=== PATIENT | female | born 1930 | race Caucasian/White ===

== ENCOUNTER 2016-11-15 06:34 | Inpatient (IN) | payer MEDICARE, BC ==
[2016-11-15] MEDS ORDERED: FUROSEMIDE 10 MG/ML 4 ML VIAL IV STA (06:45)
--- NOTE | 2016-11-15 06:45 | ED ---
General Adult HPI - General Source: RN notes reviewed <Nicholas Herrera - Last Filed: 11/15/16 06:47> <Nicholas Trevino - Last Filed: 11/15/16 08:26> - General Stated complaint: KEMAL Time Seen by Provider: 11/15/16 06:34 - History of Present Illness Initial comments: This is an 86-year-old female that was transferred to us from [facility] by Dr. pathak. Patient showed up there did complain of some chest pain also had a history of recently diagnosed pneumonia. Patient came in because she is having difficulty breathing when she woke up with him all night with bathroom. Dr. Read stated that she had congestive heart failure today as well as COPD exacerbation. She continues to treat the pneumonia and he stated that he put her on heparin and nitroglycerin for the chest pain. I spoke with the patient she denied ever having any chest pain today she did say she has some upper back pain. Patient stated that her breathing had improved so she went to [facility]. Patient states she's been on oxygen 24 hours a day and most recently she has been moved up to 5 L of oxygen. Patient states she does have some increased edema in her legs. Patient denies any fever or chills. Patient denies any abdominal pain. Patient denies any lightheadedness or dizziness. ( Nicholas Herrera) - Related Data Home Medications Medication Instructions Recorded Confirmed Cholecalciferol [Vitamin D3] 5,000 unit PO DAILY 11/26/14 03/12/16 Oxybutynin Chloride [Ditropan] 5 mg PO BID 11/26/14 03/12/16 Pravastatin Sodium [Pravachol] 20 mg PO DAILY 11/26/14 03/12/16 Vits A,C,E/Lutein/Minerals 1 tab PO DAILY 11/26/14 03/12/16 [Ocuvite with Lutein Tablet] Aspirin EC [Ecotrin] 325 mg PO DAILY 01/21/16 03/12/16 Cyanocobalamin (Vitamin B-12) 5,000 mcg SUBLINGUAL DAILY 01/21/16 03/12/16 [Vitamin B12] L.acidoph,Paracasei, B.lactis 1 cap PO DAILY 01/21/16 03/12/16 [Probiotic] Bea[place]ont-3 Fatty Acids/Fish Oil [Fish 1 cap PO DAILY 01/21/16 03/12/16 Oil 1,000 mg Softgel] Pyridoxine [Vitamin B-6] 100 mg PO DAILY 01/21/16 03/12/16 Coconut Oil 1,000 mg PO DAILY 02/06/16 03/12/16 Spironolactone [Aldactone] 25 mg PO QAM 02/06/16 03/12/16 Acetaminophen Tab [Tylenol] 650 mg PO Q4-6H 03/12/16 03/12/16 Fluticasone/Salmeterol [Advair 1 puff INHALATION RT-BID 03/12/16 03/12/16 250-50 Diskus] Ipratropium-Albuterol Nebulize 3 ml INHALATION RT-Q6H PRN 03/12/16 03/12/16 [Duoneb 0.5 mg-3 mg/3 ml Soln] Losartan [Cozaar] 50 mg PO 03/12/16 guaiFENesin 400 mg PO QID 03/12/16 03/12/16 Previous Rx's Medication Instructions Recorded Azithromycin [Zithromax Tri-Bobby] 500 mg PO DAILY #5 tab 03/15/16 predniSONE 10 mg PO DAILY #40 tab 03/15/16 Allergies Allergy/AdvReac Type Severity Reaction Status Date / Time levofloxacin [From Levaquin] Allergy Rash/Hives Verified 11/15/16 06:43 Review of Systems ROS Other: All systems not noted in ROS Statement are negative. <Nicholas Herrera - Last Filed: 11/15/16 06:47> ROS Other: All systems not noted in ROS Statement are negative. <Nicholas Trevino - Last Filed: 11/15/16 08:26> ROS Statement: Those systems with pertinent positive or pertinent negative responses have been documented in the HPI. Past Medical History Past Medical History: Asthma, COPD, Hyperlipidemia, Hypertension, Myocardial Infarction ([place]), Osteoarthritis ([place]), Pneumonia Additional Past Medical History / Comment(s): diverticulitis, "irreg heart beat " Last Myocardial Infarction Date:: unsure History of Any Multi-Drug Resistant Organisms: MRSA Date of last positivie culture/infection: 01/22/16 MDRO Source:: sputum Past Surgical History: Appendectomy, Bowel Resection, Section, Cholecystectomy, Hysterectomy Additional Past Surgical History / Comment(s): cataracts,colonoscopy, pic line in sept-since removed Past Anesthesia/Blood Transfusion Reactions: No Reported Reaction Past Psychological History: No Psychological Hx Reported Smoking Status: Former smoker Past Alcohol Use History: None Reported Additional Past Alcohol Use History / Comment(s): started smoking 1953, quit - 2015 was smoking between 1.5 and 2 ppd Past Drug Use History: None Reported - Past Family History Father Family Medical History: Cancer Additional Family Medical History / Comment(s): stomach cancer Mother Family Medical History: No Reported History Additional Family Medical History / Comment(s): in a mva <Nicholas Herrera - Last Filed: 11/15/16 06:47> General Exam <Nicholas Herrera - Last Filed: 11/15/16 06:47> General appearance: alert, anxious, in distress Head exam: Present: atraumatic, normocephalic, normal inspection Eye exam: Present: normal appearance, PERRL, EOMI. Absent: scleral icterus, conjunctival injection, periorbital swelling ENT exam: Present: normal exam, mucous membranes moist Neck exam: Present: normal inspection. Absent: tenderness, meningismus, lymphadenopathy Respiratory exam: Present: normal lung sounds bilaterally, rales, accessory muscle use, decreased breath sounds, prolonged expiratory. Absent: respiratory distress, wheezes, rhonchi, stridor Cardiovascular Exam: Present: regular rate, normal rhythm, normal heart sounds. Absent: systolic murmur, diastolic murmur, rubs, gallop, clicks GI/Abdominal exam: Present: soft, normal bowel sounds. Absent: distended, tenderness, guarding, rebound, rigid Extremities exam: Present: normal inspection, full ROM, normal capillary refill. Absent: tenderness, pedal edema, joint swelling, calf tenderness Back exam: Present: normal inspection Neurological exam: Present: alert, oriented X3, CN II-XII intact Psychiatric exam: Present: normal affect, normal mood Skin exam: Present: warm, dry, intact, normal color. Absent: rash <Nicholas Trevino - Last Filed: 11/15/16 08:26> - General Exam Comments Initial Comments: GENERAL: Patient is well-developed and well-nourished. Patient is nontoxic and well- hydrated and is in mild distress. ENT: Neck is soft and supple. No significant lymphadenopathy is noted. Oropharynx is clear. Moist mucous membranes. Neck has full range of motion without eliciting any pain. EYES: The sclera were anicteric and conjunctiva were pink and moist. Extraocular movements were intact and pupils were equal round and reactive to light. Eyelids were unremarkable. PULMONARY: Unlabored respirations. Good breath sounds bilaterally. Patient has crackles bilaterally. CARDIOVASCULAR: There is a regular rate and rhythm without any murmurs gallops or rubs. Patient has occasional extrasystole ABDOMEN: Soft and nontender with normal bowel sounds. No palpable organomegaly was noted. There is no palpable pulsatile mass. SKIN: Skin is clear with no lesions or rashes and otherwise unremarkable. NEUROLOGIC: Patient is alert and oriented x3. Cranial nerves II through XII are grossly intact. Motor and sensory are also intact. Normal speech, volume and content. Symmetrical smile. MUSCULOSKELETAL: Normal extremities with adequate strength and full range of motion. 2+ edema bilaterally LYMPHATICS: No significant lymphadenopathy is noted PSYCHIATRIC: Normal psychiatric evaluation. Normal interpersonal interactions appears functionally intact in deals appropriately with others. No signs of depression. No signs of anxiety. (Nicholas Herrera) Course <Nicholas Herrera - Last Filed: 11/15/16 06:47> <Nicholas Trevino - Last Filed: 11/15/16 08:26> Vital Signs 11/15/16 11/15/16 11/15/16 06:36 06:57 07:04 Temperature 96.9 F L Pulse Rate 86 112 H Respiratory 22 24 18 Rate Blood Pressure 156/69 164/77 O2 Sat by Pulse 96 92 L Oximetry 11/15/16 11/15/16 07:36 07:56 Temperature Pulse Rate 102 H 112 H Respiratory 22 22 Rate Blood Pressure 179/75 181/72 O2 Sat by Pulse 95 95 Oximetry - Reevaluation(s) Reevaluation #1: 11/15/16 08:25 Patient appears to be in A. fib with RVR, patient on heparin drip, secondary to severe COPD, CHF, pneumonia with hypoxia will be placed on BiPAP ( Nicholas Trevino) Reevaluation #2: 11/15/16 08:25 Patient improving on BiPAP (Roskopp,Nicholas B) Medical Decision Making <Nicholas Herrera - Last Filed: 11/15/16 06:47> - Lab Data Result diagrams: 11/15/16 06:55 11/15/16 06:55 - Radiology Data Radiology results: report reviewed (Chest x-rays reviewed consistent with pulmonary edema with likely underlying infiltrate), image reviewed <Nicholas Trevino - Last Filed: 11/15/16 08:26> - Medical Decision Making EKG shows sinus tachycardia with occasional PAC at 116 bpm NV interval is 112 QRS is 116 QT interval 356 QTC is 494. There is no ST segment elevation or depression or T wave abnormalities are noted Dr. Trevino will be taking over the care of this patient at 7 AM (Nicholas Herrera) 86. ER with multiple medical comorbidities is coming in with shortness of breath multifactorial hypoxia, COPD CHF and pneumonia. Patient will be admitted to continue cardio dynamic and hemodynamic support, breathing treatments, monitoring of oxygen and breathing support. (Nicholas Trevino) - Lab Data Lab Results 11/15/16 11/15/16 11/15/16 Range/Units 06:55 06:55 06:55 WBC 16.8 H (3.8-10.6) k/uL RBC 4.20 (3.80-5.40) m/uL Hgb 11.5 (11.4-16.0) gm/dL Hct 36.6 (34.0-46.0) % MCV 87.1 (80.0-100.0) fL MCH 27.3 (25.0-35.0) pg MCHC 31.4 (31.0-37.0) g/dL RDW 14.3 (11.5-15.5) % Plt Count 565 H (150-450) k/uL Neutrophils % 81 % Lymphocytes % 10 % Monocytes % 6 % Eosinophils % 1 % Basophils % 1 % Neutrophils # 13.5 H (1.3-7.7) k/uL Lymphocytes # 1.7 (1.0-4.8) k/uL Monocytes # 1.0 (0-1.0) k/uL Eosinophils # 0.1 (0-0.7) k/uL Basophils # 0.1 (0-0.2) k/uL Hypochromasia Moderate PT (9.0-12.0) sec INR (<1.2) APTT (22.0-30.0) sec Sodium 137 (137-145) mmol/L Potassium 4.8 (3.5-5.1) mmol/L Chloride 93 L (98-107) mmol/L Carbon Dioxide 35 H (22-30) mmol/L Anion Gap 9 mmol/L BUN 29 H (7-17) mg/dL Creatinine 0.93 (0.52-1.04) mg/dL Est GFR (MDRD) Af Amer >60 (>60 ml/min/1.73 sqM) Est GFR (MDRD) Non-Af 57 (>60 ml/min/1.73 sqM) Glucose 180 H (74-99) mg/dL Calcium 9.0 (8.4-10.2) mg/dL Magnesium 1.8 (1.6-2.3) mg/dL Total Bilirubin 0.4 (0.2-1.3) mg/dL AST 25 (14-36) U/L ALT 37 (9-52) U/L Alkaline Phosphatase 94 (38-126) U/L Total Creatine Kinase 33 (30-135) U/L CK-MB (CK-2) 3.0 H* (0.0-2.4) ng/mL CK-MB (CK-2) Rel Index 9.1 Troponin I 0.033 (0.000-0.034) ng/mL Total Protein 6.6 (6.3-8.2) g/dL Albumin 3.5 (3.5-5.0) g/dL 11/15/16 Range/Units 06:55 WBC (3.8-10.6) k/uL RBC (3.80-5.40) m/uL Hgb (11.4-16.0) gm/dL Hct (34.0-46.0) % MCV (80.0-100.0) fL MCH (25.0-35.0) pg MCHC (31.0-37.0) g/dL RDW (11.5-15.5) % Plt Count (150-450) k/uL Neutrophils % % Lymphocytes % % Monocytes % % Eosinophils % % Basophils % % Neutrophils # (1.3-7.7) k/uL Lymphocytes # (1.0-4.8) k/uL Monocytes # (0-1.0) k/uL Eosinophils # (0-0.7) k/uL Basophils # (0-0.2) k/uL Hypochromasia PT 10.5 (9.0-12.0) sec INR 1.0 (<1.2) APTT 38.3 H (22.0-30.0) sec Sodium (137-145) mmol/L Potassium (3.5-5.1) mmol/L Chloride (98-107) mmol/L Carbon Dioxide (22-30) mmol/L Anion Gap mmol/L BUN (7-17) mg/dL Creatinine (0.52-1.04) mg/dL Est GFR (MDRD) Af Amer (>60 ml/min/1.73 sqM) Est GFR (MDRD) Non-Af (>60 ml/min/1.73 sqM) Glucose (74-99) mg/dL Calcium (8.4-10.2) mg/dL Magnesium (1.6-2.3) mg/dL Total Bilirubin (0.2-1.3) mg/dL AST (14-36) U/L ALT (9-52) U/L Alkaline Phosphatase (38-126) U/L Total Creatine Kinase (30-135) U/L CK-MB (CK-2) (0.0-2.4) ng/mL CK-MB (CK-2) Rel Index Troponin I (0.000-0.034) ng/mL Total Protein (6.3-8.2) g/dL Albumin (3.5-5.0) g/dL Critical Care Time Critical Care Time: Yes Total Critical Care Time: 31 <Nicholas Trevino - Last Filed: 11/15/16 08:26> Disposition <Nicholas Herrera - Last Filed: 11/15/16 06:47> <Nicholas Trevino - Last Filed: 11/15/16 08:26> Clinical Impression: Congestive heart failure, Acute pulmonary edema, Community acquired pneumonia, Asthma exacerbation in COPD, Hypoxia, Acute respiratory failure Disposition: ADMITTED IP TO THIS [facility] Condition: Serious Referrals: Araceli Gloria, MARYSE [REFERRING] - 1-2 days
[2016-11-15] MEDS ORDERED: NITROGLYCERIN OINT 1 INCH/GM PACKET TOPICAL STA (07:01)
[2016-11-15 07:04] LABS: Basophils # (A) 0.1 k/uL (0-0.2); Basophils % (A) 1 %; CH 26.7; CHCM 30.8; Eosinophils # (A) 0.1 k/uL (0-0.7); Eosinophils % (A) 1 %; HCT 36.6 % (34.0-46.0); HDW 2.59; HGB 11.5 gm/dL (11.4-16.0); Hypochromasia Moderate; Immature Gran Flag Moderate; Luc # (Auto) 0.29; Luc % (Auto) 2; Lymphocytes # (A) 1.7 k/uL (1.0-4.8); Lymphocytes % (A) 10 %; MCH 27.3 pg (25.0-35.0); MCHC 31.4 g/dL (31.0-37.0); MCV 87.1 fL (80.0-100.0); Mean Platelet Volume 6.4; Monocytes % (A) 6 %; Neutrophils # (A) 13.5 k/uL (1.3-7.7); Neutrophils % (A) 81 %; RDW 14.3 % (11.5-15.5); WBC 16.8 k/uL (3.8-10.6); WBC (Perox) 17.44
[2016-11-15] MEDS ORDERED: HEPARIN SODIUM,PORCINE/D5W PMX 25,000 UNIT in DEXTROSE/WATER 1 500ML.BAG IV SCH (07:15)
[2016-11-15 07:23] LABS: Prothrombin Time 10.5 sec (9.0-12.0)
[2016-11-15 07:27] LABS: ALT 37 U/L (9-52); AST 25 U/L (14-36); Alkaline Phosphatase 94 U/L (38-126); Anion Gap 9 mmol/L; Blood Urea Nitrogen 29 mg/dL (7-17); Carbon Dioxide 35 mmol/L (22-30); Chloride 93 mmol/L (98-107); Glucose 180 mg/dL (74-99); Magnesium 1.8 mg/dL (1.6-2.3); Non-African American GFR(MDRD) 57 (>60 ml/min/1.73 sqM); Potassium 4.8 mmol/L (3.5-5.1); Sodium 137 mmol/L (137-145); Total Bilirubin 0.4 mg/dL (0.2-1.3); Total Protein 6.6 g/dL (6.3-8.2)
[2016-11-15 07:36] LABS: Partial Thromboplastin Time 38.3 sec (22.0-30.0)
[2016-11-15 07:37] LABS: Troponin I 0.033 ng/mL (0.000-0.034)
[2016-11-15] MEDS ORDERED: DILTIAZEM 5 MG/ML 5 ML VIAL IVP STA (08:15)
[2016-11-15] MEDS ORDERED: ASPIRIN 81 MG CHEW PO STA (08:16)
[2016-11-15] MEDS ORDERED: TOBRAMYCIN PER PHARMACY MISCELLANE PRN (08:16)
[2016-11-15] MEDS ORDERED: NITROGLYCERIN SL TABS 0.4 MG TAB SUBLINGUAL PRN (08:16)
[2016-11-15] MEDS ORDERED: PNEUMONIA PROTOCOL UTILIZED 1 EACH MISC PO PRN (08:16)
[2016-11-15] MEDS ORDERED: HEPARIN SODIUM,PORCINE 5,000 UNIT/ML 1 ML VIAL IV PRN (08:16)
[2016-11-15] MEDS ORDERED: AZITHROMYCIN 500 MG in SODIUM CHLORIDE 0.9% 250 ML IVPB STA (08:27)
--- NOTE | 2016-11-15 08:34 | XR ---
EXAMINATION TYPE: XR chest 1V portable DATE OF EXAM: 11/15/2016 HISTORY: Shortness of breath. COMPARISON: 03/14/2016 TECHNIQUE: Single view of the chest is submitted. FINDINGS: Demonstrated are scattered senescent parenchymal change. Patchy density in the region of the lingula. Chronic appearing density right middle lobe. The heart is stable. Hilar and mediastinal structures are within normal limits. Degenerative changes are seen of the dorsal spine. IMPRESSION: 1. Patchy density in the region of the lingula. Chronic appearing density right middle lobe.
[2016-11-15 08:35] LABS: Manual Review Performed; Toxic Granulation Present
[2016-11-15] MEDS: SODIUM CHLORIDE 0.9% 1,000 ML IV SCH (08:35)
[2016-11-15] MEDS ORDERED: DILTIAZEM 125 MG in SODIUM CHLORIDE 0.9% 100 ML IV ONE (09:00)
[2016-11-15 10:32] LABS: Troponin I 0.029 ng/mL (0.000-0.034)
[2016-11-15] MEDS: MORPHINE SULFATE 4 MG/ML SYRINGE IV PRN ×2 (10:57→12:01)
[2016-11-15] MEDS ORDERED: TOBRAMYCIN SULFATE 140 MG in SODIUM CHLORIDE 0.9% 100 ML IVPB SCH (11:00)
[2016-11-15] MEDS: IPRATROPIUM-ALBUTEROL 3 ML NEB INHALATION SCH ×3 (11:49→19:59)
[2016-11-15] MEDS: methylPREDNISolone SOD SUCCI 125 MG/2 ML VIAL IV SCH ×3 (12:01→23:15)
[2016-11-15] MEDS ORDERED: IV VANCOMYCIN PER PHARMACY 1 EACH MISC MISCELLANE PRN (13:48)
--- NOTE | 2016-11-15 13:49 | P.CNPUL ---
History of Present Illness Consult date: 11/15/16 Reason for consult: dyspnea, COPD, pneumonia History of present illness: A pleasant 85-year-old female patient, known history of COPD, known history of chronic hypoxic respiratory failure, who got transferred to our hospital because of worsening shortness of breath. The patient has been followed up by our service and she had been seen at the [facility]. The patient had a fall approximately 3 weeks ago and she sustained significant injury to her lower back. At that point she had been seen in [facility] and further x-rays at shown compression fractures in her lumbar spine. She was unable to ambulate and be independent and based on that she was taken to [facility] medical facility where she had been staying for the past 3 weeks. The patient during her stay developed shingles over the right posterior chest area and she was started on acyclovir around November 01. The patient subsequently started having increased shortness of breath. She started having increased cough chest congestion and chest tightness and wheezing. Has COPD exacerbated. Denies having any fever or chills. She got transferred to our hospital and the chest x-ray showing left lower lobe and lingular infiltrate in addition to an atelectatic band and the right midlung area. She is producing copious amount of purulent respiratory secretions. She was placed on BiPAP for respiratory support at a pressure of 12/5 cm of water with an FiO2 of 40%. Currently she is on oxygen by nasal cannula. No change in mental status. Family is at the bedside. No reported aspiration. 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 In fact, the previous sputum analysis at that was done in December 2015 showed multiple pseudomonas and MRSA elements. Her troponins are minimally elevated at 0.03 and her proBNP level is 3350. Review of Systems Constitutional: Reports fatigue, Reports lethargy, Reports poor appetite, Reports weakness Eyes: denies blurred vision, denies bulging eye, denies decreased vision Ears: deny: decreased hearing Ears, nose, mouth and throat: Denies headache, Denies sore throat Cardiovascular: Denies chest pain, Denies shortness of breath Respiratory: Reports cough, Reports cough with sputum, Reports dyspnea, Reports excessive sputum, Reports respiratory infections, Reports wheezing Gastrointestinal: Denies abdominal pain, Denies diarrhea, Denies nausea, Denies vomiting Genitourinary: Denies dysuria, Denies hematuria Musculoskeletal: Reports gait dysfunction, Reports limitation of motion, Reports low back pain Musculoskeletal: absent: ankle pain, ankle stiffness, ankle swelling Integumentary: Reports depigmentation (Shingles involving the right posterior back area.) Neurological: Reports weakness Psychiatric: Denies anxiety, Denies depression Endocrine: Denies fatigue, Denies weight change Hematologic/Lymphatic: Reports as per HPI Allergic/Immunologic: Reports as per HPI Past Medical History Past Medical History: Asthma, COPD, Hyperlipidemia, Hypertension, Myocardial Infarction ([place]), Osteoarthritis (OA), Pneumonia Additional Past Medical History / Comment(s): Previous pneumonia with MRSA and pseudomonas as the cultures are positive in February 2016, shingles involving the right posterior chest area, COPD, chronic hypoxic history failure maintained on oxygen at 3 L/m nasal cannula, secondary pulmonary hypertension, coronary artery disease with previous myocardial infarction, diverticulosis and diverticular disease, fall with compression fracture and chronic back pain, vitamin D deficiency, osteoporosis, hypertension, questionable irregular heartbeat/fibrillation Last Myocardial Infarction Date:: unknown-found on EKG History of Any Multi-Drug Resistant Organisms: MRSA Date of last positivie culture/infection: 01/22/16 MDRO Source:: sputum Past Surgical History: Appendectomy, Bowel Resection, Section, Cholecystectomy, Hysterectomy Additional Past Surgical History / Comment(s): Bowel resection due to diverticular dx, colonoscopies, picc line insertion/removal. Past Anesthesia/Blood Transfusion Reactions: No Reported Reaction Past Psychological History: No Psychological Hx Reported Additional Psychological History / Comment(s): Pt currently residing at [facility] for rehab. She wears oxygen at 3L/NC ATC. When home, she has a son who lives with her. She has a cane and walker if needed at home already. She normally can drive. She has a nebulizer at home. Smoking Status: Former smoker Past Alcohol Use History: None Reported Additional Past Alcohol Use History / Comment(s): started smoking 1953, quit - 2015 was smoking between 1.5 and 2 ppd Past Drug Use History: None Reported - Past Family History Father Family Medical History: Cancer Additional Family Medical History / Comment(s): Father of stomach cancer at the age of 67yrs. Mother Family Medical History: No Reported History Additional Family Medical History / Comment(s): in a mva Medications and Allergies Home Medications Medication Instructions Recorded Confirmed Type Cholecalciferol [Vitamin D3] 5,000 unit PO DAILY 11/26/14 11/15/16 History Pravastatin Sodium [Pravachol] 20 mg PO DAILY 11/26/14 11/15/16 History Vits A,C,E/Lutein/Minerals 1 tab PO DAILY 11/26/14 11/15/16 History [Ocuvite with Lutein Tablet] [place]-3 Fatty Acids/Fish Oil [Fish 1 cap PO DAILY 01/21/16 11/15/16 History Oil 1,000 mg Softgel] Pyridoxine [Vitamin B-6] 100 mg PO DAILY 01/21/16 11/15/16 History Coconut Oil 1,000 mg PO DAILY 02/06/16 11/15/16 History Fluticasone/Salmeterol [Advair 1 puff INHALATION RT-BID 03/12/16 11/15/16 History 250-50 Diskus] Ipratropium-Albuterol Nebulize 3 ml INHALATION RT-QID 03/12/16 11/15/16 History [Duoneb 0.5 mg-3 mg/3 ml Soln] Aspirin 81 mg PO DAILY 11/15/16 11/15/16 History Cyanocobalamin (Vitamin B-12) 1,000 mcg PO DAILY 11/15/16 11/15/16 History [Vitamin B-12] Fexofenadine HCl [Darline Allergy] 180 mg PO DAILY 11/15/16 11/15/16 History Furosemide [Lasix] 40 mg PO DAILY 11/15/16 11/15/16 History Naproxen Sodium [Aleve] 220 mg PO BID 11/15/16 11/15/16 History Potassium 99 mg PO DAILY 11/15/16 11/15/16 History Allergies Allergy/AdvReac Type Severity Reaction Status Date / Time levofloxacin [From Levaquin] Allergy Rash/Hives Verified 11/15/16 06:43 Physical Exam Vitals: Vital Signs Temp Pulse Pulse Resp BP BP Pulse Ox 11/15/16 12:05 92 11/15/16 11:56 90 20 11/15/16 11:54 97.8 F 90 20 158/73 98 11/15/16 11:50 92 11/15/16 11:17 108 H 20 160/67 98 11/15/16 10:59 97.8 F 11/15/16 10:54 105 H 20 143/67 100 11/15/16 09:40 98.0 F 100 20 158/74 97 11/15/16 09:16 110 H 20 159/82 96 11/15/16 08:56 100 22 149/66 97 11/15/16 08:36 120 H 22 189/72 98 11/15/16 08:16 120 H 22 181/64 95 11/15/16 07:56 112 H 22 181/72 95 11/15/16 07:36 102 H 22 179/75 95 11/15/16 07:04 112 H 18 164/77 92 L 11/15/16 06:57 24 11/15/16 06:36 96.9 F L 86 22 156/69 96 Intake and Output 11/14/16 11/15/16 11/15/16 22:59 06:59 14:59 Intake Total 512.89 Balance 512.89 Intake: Intake, IV Titration 512.89 Amount Azithromycin 500 mg In 250 Sodium Chloride 0.9% 250 ml @ 125 mls/hr IVPB ONCE STA Rx#:[id number] Diltiazem 125 mg In 60 Sodium Chloride 0.9% 100 ml @ 5 MG/HR 5 mls/hr IV .Q24H ONE Rx#:[id number] Heparin Sodium,Porcine/ 52.89 D5w Pmx 25,000 unit In Dextrose/Water 1 500ml. bag @ 12 UNITS/KG/HR 17. 63 mls/hr IV .Q24H [facility] Rx #:[id number] Piperacillin-Tazobactam 3 50 .375 gm In Dextrose/Water 1 50ml.bag @ 12.5 mls/hr IVPB Q8HR [facility] Rx#: [id number] Tobramycin Sulfate 140 mg 100 In Sodium Chloride 0.9% 100 ml @ 103.5 mls/hr IVPB DAILY [facility] Rx#: [id number] Other: Voiding Method Indwelling Catheter Weight 73.482 kg Elderly female patient in mild degree of respiratory distress even at rest. She has a BiPAP and she had the bedside and apparently she was using the BiPAP earlier. Not using excessive muscle breathing.Head exam was generally normal. There was no scleral icterus or corneal arcus. Mucous membranes were moist.Neck was supple and without jugular venous distension, thyromegaly, or carotid bruits. Carotids were easily palpable bilaterally. There was no adenopathy. Lung sounds are diminished bilaterally and diffuse expiratory wheezes throughout the lung tony. The patient is also some shingles-type of lesions in the posterior right chest area.Cardiac exam revealed the PMI to be normally situated and sized. The rhythm was regular and no extrasystoles were noted during several minutes of auscultation. The first and second heart sounds were normal and physiologic splitting of the second heart sound was noted. There were no murmurs, rubs, clicks, or gallops. Abdomen is obese soft nontender no organs cannot be accurately palpated. Extremities shows trace edema and there is no cyanosis or clubbing at this point. Results - Laboratory Findings CBC and BMP: 11/15/16 06:55 11/15/16 06:55 PT/INR, D-dimer PT 10.5 sec (9.0-12.0) 11/15/16 06:55 INR 1.0 (<1.2) 11/15/16 06:55 Abnormal lab findings: Abnormal Labs 11/15/16 11/15/16 11/15/16 06:55 06:55 06:55 WBC 16.8 H Plt Count 565 H Neutrophils # 13.5 H APTT Chloride 93 L Carbon Dioxide 35 H BUN 29 H Glucose 180 H CK-MB (CK-2) 3.0 H* 11/15/16 11/15/16 11/15/16 06:55 09:21 09:21 WBC Plt Count Neutrophils # APTT 38.3 H 38.0 H Chloride Carbon Dioxide BUN Glucose CK-MB (CK-2) 3.0 H* - Diagnostic Findings Chest x-ray: image reviewed Assessment and Plan Plan: Assessment 1 acute left lung pneumonia involving the lingula in the left lower lobe segment. There is also some atelectatic changes in the right midlung. Rule out pneumonia with mucous plugging secondary atelectasis. Rule out infection with MRSA or pseudomonas nontender the patient has been colonized and infected by these microorganisms in the past. 2 acute on top of chronic hypoxic respiratory failure 3 acute COPD exacerbation with BiPAP dependent respiratory failure 4 obesity 5 coronary artery disease 6 CHF with diastolic dysfunction secondary pulmonary hypertension with a PA pressure of around 45 7 shingles, treated with acyclovir 8 fall with back pain and compression fractures 9 osteoporosis 10 diverticular disease 11 medical debility seconds above-mentioned comorbidities Plan Cover this patient with DuoNeb nebulized treatments around the clock. Put the patient on IV vancomycin and IV Zosyn and Zithromax orally. This will cover this patient for pseudomonas and MRSA. IV Solu-Medrol. BiPAP treatment on and off during the day and continuously at nighttime to support her COPD exacerbation breathing. Outpatient medication will be ordered resume. We'll continue to follow make further recommendations based on her progress.
[2016-11-15] MEDS ORDERED: VANCOMYCIN 1,500 MG in SODIUM CHLORIDE 0.9% 250 ML IVPB ONE (15:00)
[2016-11-15] MEDS ORDERED: PIPERACILLIN-TAZOBACTAM 3.375 GM in DEXTROSE/WATER 1 50ML.BAG IVPB SCH (16:00)
--- NOTE | 2016-11-15 16:03 | CONS ---
This is an 86-year-old lady with a history of smoking that she quit about 2 years ago. She has underlying emphysema, COPD. About a week or so ago she went with back pain to [facility], had osteoporotic fracture that was addressed, and she was also told that she may have pneumonia. Then she came in again with symptoms of increasing shortness of breath, fatigue, lack of energy, and was found to have possible pneumonia and bronchitis. While she was in the hospital she complained of chest pain and developed some atrial fibrillation, was transferred here. After arrival, her troponins are normal. She is resting comfortably, but her breathing seems short when she gets around. The shortness of breath has been going on for the past 3 days. She also has fatigue, lack or energy, but no fever or chills. After arrival, her breathing is somewhat stable. She has been initiated on antibiotics and she seems to be feeling better. She came in with atrial fibrillation, fairly moderate rapid ventricular rate, with intermittently going in and out of atrial fibrillation, and she has been placed on a heparin drip. She has an equivocal troponin elevation which is not suggestive of myocardial injury. Her BNP is modestly elevated at 3300. PAST MEDICAL HISTORY: 1. Smoking and COPD. 2. Acute bronchitis. 3. Osteoporosis. 4. History of diverticulitis. 5. She is known to have some irregular heart rate but has not been on medications. 6. Status post appendectomy. 7. Status post cholecystectomy. No documented evidence of any prior myocardial infarction of CVA. She quit smoking about 2 years ago; has had episodes of exacerbation of COPD in the past. Medications at home include: 1. Vitamin supplements. 2. Aldactone. 3. Losartan. 4. Lasix 40 mg daily. ALLERGIES: LEVAQUIN. On examination, her blood pressure is about 150/70. Pulse rate is about 90 to 100, irregular. HEENT: Unremarkable. Fundus was not examined by me. Neck is supple. There is JVD of 1 cm. No carotid bruit. Heart exam reveals S1 and S2 with a short systolic murmur at the base. Lungs reveal scattered expiratory rhonchi with rales on both bases, but after coughing some of the rales have cleared up, but the rhonchi persist. Abdomen is distended, non-tender. Lower extremities reveal diminished pulses; trace edema. Central nervous system is grossly within normal limits. EKG revealed initially a sinus mechanism with a multifocal atrial tachycardia type picture with right bundle. Subsequent EKGs and rhythm strips suggest atrial fibrillation in and out with a moderate ventricular rate, non-specific ST -T changes. Chest x-ray suggests possibility of an infiltrate; whether this is acute or resolving is unclear. IMPRESSION: 1. Probable pneumonia. 2. Atrial fibrillation with a moderate ventricular rate, probably new onset. 3. Obesity. 4. Smoking, which she quit 2 years ago, with history of chronic obstructive pulmonary disease. 5. History of hypertension. RECOMMENDATIONS: I am recommending that we treat her with a small dose of beta rosibel and Verapamil, discontinue Cardizem drip, start her on Eliquis, discontinue heparin drip, and also seek a full pulmonary evaluation. Echocardiogram will be performed today. Based on these findings, I will make further recommendations. Thank you very much for the consult. NIMESH
[2016-11-15] MEDS: PIPERACILLIN-TAZOBACTAM 3.375 GM in DEXTROSE/WATER 1 50ML.BAG IVPB SCH ×2 (16:07→23:15)
[2016-11-15] MEDS: VERAPAMIL 40 MG TAB PO SCH ×4 (16:07→21:32)
[2016-11-15 17:03] LABS: Glucose,Whole Blood 181 mg/dL (75-99)
[2016-11-15] MEDS: INSULIN LISPRO (humaLOG) 300 UNIT/3 ML VIAL SQ SCH ×2 (17:29→21:33)
[2016-11-15 19:35] LABS: Creatine Kinase <20 U/L (30-135)
[2016-11-15 19:46] LABS: Creatine Kinase MB 2.2 ng/mL (0.0-2.4); Troponin I 0.024 ng/mL (0.000-0.034)
--- NOTE | 2016-11-15 20:12 | P.CNOR ---
History of Present Illness - [facility] Consult date: 11/15/16 Consult reason: fracture History of present illness: This is an 86-year-old female who was seen and evaluated today [facility]. Patient was brought to the hospital early this morning after being transferred down from [facility]. Patient was initially seen in a hospital up there regarding chest pain and shortness of breath. There is concern with both pneumonia and congestive heart failure, she was transferred to [facility] for further care. She has been seen by both pulmonology and cardiology at this point. She's been diagnosed with pneumonia and A. fib, and is being managed by the's medical specialties. During the stay, there is been concern of a compression fracture involving the lumbar spine that she was diagnosed with multiple weeks ago. Orthopedic team was then consult with regards to this condition. Patient is seen and evaluated in the selective care unit today. She is on BiPAP , this was removed selected examined and discuss the current condition with the patient. She appears comfortable while resting in bed. She notes most of the pain in the center of the back in the lumbar region. She states there is no significant traumatic event, she states that she was walking and felt like the back gave out in that region. She states that roughly was around the October weekend. She was never prescribed a brace of any sort. She has not seen any orthopedic doctor with regards to this. Patient has no significant orthopedic history, including surgeries. She did state she fell about 15 years ago on her left leg, she states the leg is really never felt the same since. Patient denies bilateral upper extremity pain, bilateral lower extremity pain, new onset cervical or thoracic pain. Review of Systems Constitutional: Reports as per HPI Past Medical History Past Medical History: Asthma, COPD, Hyperlipidemia, Hypertension, Myocardial Infarction (DC), Osteoarthritis (OA), Pneumonia Additional Past Medical History / Comment(s): Previous pneumonia with MRSA and pseudomonas as the cultures are positive in February 2016, shingles involving the right posterior chest area, COPD, chronic hypoxic history failure maintained on oxygen at 3 L/m nasal cannula, secondary pulmonary hypertension, coronary artery disease with previous myocardial infarction, diverticulosis and diverticular disease, fall with compression fracture and chronic back pain, vitamin D deficiency, osteoporosis, hypertension, questionable irregular heartbeat/fibrillation Last Myocardial Infarction Date:: unknown-found on EKG History of Any Multi-Drug Resistant Organisms: MRSA Year Discovered:: 01/22/16 MDRO Source:: sputum Past Surgical History: Appendectomy, Bowel Resection, Section, Cholecystectomy, Hysterectomy Additional Past Surgical History / Comment(s): Bowel resection due to diverticular dx, colonoscopies, picc line insertion/removal. Past Anesthesia/Blood Transfusion Reactions: No Reported Reaction Past Psychological History: No Psychological Hx Reported Additional Psychological History / Comment(s): Pt currently residing at [facility] for rehab. She wears oxygen at 3L/NC ATC. When home, she has a son who lives with her. She has a cane and walker if needed at home already. She normally can drive. She has a nebulizer at home. Smoking Status: Former smoker Past Alcohol Use History: None Reported Additional Past Alcohol Use History / Comment(s): started smoking 1953, quit 2015 was smoking between 1.5 and 2 ppd Past Drug Use History: None Reported - Past Family History Father Family Medical History: Cancer Additional Family Medical History / Comment(s): Father of stomach cancer at the age of 67yrs. Mother Family Medical History: No Reported History Additional Family Medical History / Comment(s): in a mva Medications and Allergies Home Medications Medication Instructions Recorded Confirmed Type Cholecalciferol [Vitamin D3] 5,000 unit PO DAILY 11/26/14 11/15/16 History Pravastatin Sodium [Pravachol] 20 mg PO DAILY 11/26/14 11/15/16 History Vits A,C,E/Lutein/Minerals 1 tab PO DAILY 11/26/14 11/15/16 History [Ocuvite with Lutein Tablet] [place]-3 Fatty Acids/Fish Oil [Fish 1 cap PO DAILY 01/21/16 11/15/16 History Oil 1,000 mg Softgel] Pyridoxine [Vitamin B-6] 100 mg PO DAILY 01/21/16 11/15/16 History Coconut Oil 1,000 mg PO DAILY 02/06/16 11/15/16 History Fluticasone/Salmeterol [Advair 1 puff INHALATION RT-BID 03/12/16 11/15/16 History 250-50 Diskus] Ipratropium-Albuterol Nebulize 3 ml INHALATION RT-QID 03/12/16 11/15/16 History [Duoneb 0.5 mg-3 mg/3 ml Soln] Aspirin 81 mg PO DAILY 11/15/16 11/15/16 History Cyanocobalamin (Vitamin B-12) 1,000 mcg PO DAILY 11/15/16 11/15/16 History [Vitamin B-12] Fexofenadine HCl [Darline Allergy] 180 mg PO DAILY 11/15/16 11/15/16 History Furosemide [Lasix] 40 mg PO DAILY 11/15/16 11/15/16 History Naproxen Sodium [Aleve] 220 mg PO BID 11/15/16 11/15/16 History Potassium 99 mg PO DAILY 11/15/16 11/15/16 History Allergies Allergy/AdvReac Type Severity Reaction Status Date / Time levofloxacin [From Levaquin] Allergy Rash/Hives Verified 11/15/16 06:43 Physical Examination On exam, patient is resting in bed with BiPAP machine. She seems very fatigued , but is able to hold a conversation and answer all my questions accurately. Notable edema noted more in the right lower extremity. I was unable to visualize any open lesions or sores throughout the bilateral upper and lower extremities There are icy hot packs present along the lower thoracic and lumbar spine Logroll maneuver the bilateral lower extremities reproduces no pain, she can straight leg raise with both legs Plantar flexion, dorsiflexion, EHL, FHL are intact throughout the bilateral extremities Calf is soft, no tenderness with palpation, dorsal pedis pulse is 2+. Sensory exam to light touch throughout the bilateral extremities is intact No tenderness with palpation throughout the cervical thoracic spine. She notes tenderness along the lumbar spinous processes and paravetebral muslces She is nontender along the bilateral knees and foot and ankles of palpation, no point tenderness noted in the bilateral upper extremities. Results - Labs Labs: Abnormal Lab Results - Last 24 Hours (Table) 11/15/16 11/15/16 11/15/16 Range/Units 06:55 06:55 06:55 WBC 16.8 H (3.8-10.6) k/uL Plt Count 565 H (150-450) k/uL Neutrophils # 13.5 H (1.3-7.7) k/uL APTT (22.0-30.0) sec Chloride 93 L (98-107) mmol/L Carbon Dioxide 35 H (22-30) mmol/L BUN 29 H (7-17) mg/dL Glucose 180 H (74-99) mg/dL POC Glucose (mg/dL) (75-99) mg/dL Total Creatine Kinase (30-135) U/L CK-MB (CK-2) 3.0 H* (0.0-2.4) ng/mL 11/15/16 11/15/16 11/15/16 Range/Units 06:55 09:21 09:21 WBC (3.8-10.6) k/uL Plt Count (150-450) k/uL Neutrophils # (1.3-7.7) k/uL APTT 38.3 H 38.0 H (22.0-30.0) sec Chloride (98-107) mmol/L Carbon Dioxide (22-30) mmol/L BUN (7-17) mg/dL Glucose (74-99) mg/dL POC Glucose (mg/dL) (75-99) mg/dL Total Creatine Kinase (30-135) U/L CK-MB (CK-2) 3.0 H* (0.0-2.4) ng/mL 11/15/16 11/15/16 Range/Units 16:45 18:46 WBC (3.8-10.6) k/uL Plt Count (150-450) k/uL Neutrophils # (1.3-7.7) k/uL APTT (22.0-30.0) sec Chloride (98-107) mmol/L Carbon Dioxide (22-30) mmol/L BUN (7-17) mg/dL Glucose (74-99) mg/dL POC Glucose (mg/dL) 181 H (75-99) mg/dL Total Creatine Kinase <20 L (30-135) U/L CK-MB (CK-2) (0.0-2.4) ng/mL H & H 11/15/16 Range/Units 06:55 Hgb 11.5 (11.4-16.0) gm/dL Hct 36.6 (34.0-46.0) % Coagulation 11/15/16 Range/Units 06:55 INR 1.0 (<1.2) Result Diagrams: 11/15/16 06:55 11/15/16 06:55 Assessment and Plan Plan: Imaging: I did order a 2 view of the lumbar spine, post-images and reports are pending Assessment: 1. Likely lumbar spine compression fracture, unknown level at this time 2. Pneumonia 3. A. fib 4. COPD Plan: I was able to discuss this case with Dr. Hays, including physical exam findings. We will await x-ray of the lumbar spine to further diagnose level of supposed compression fracture. I will order a TLSO orthotic brace for stabilization. Once patient is fitted for the brace, she may weight-bear as tolerated, I advised utilizing a walker with ambulation. Recommend PT evaluation Pain control Weight-bear as tolerated, utilize walker. No weightbearing until TLSO brace is fitted Other medical specialty recommendations Recommend follow-up in the outpatient setting for x-ray evaluation in the future, we will be available for any further questions regarding Time with Patient: Less than 30
[2016-11-15 20:52] LABS: Glucose,Whole Blood 172 mg/dL (75-99)
[2016-11-15] MEDS ORDERED: CEFTAROLINE FOSAMIL 600 MG in SODIUM CHLORIDE 0.9% 250 ML IVPB SCH (21:00)
--- NOTE | 2016-11-15 21:10 | XR ---
EXAMINATION TYPE: XR lumbar spine 2 or 3V DATE OF EXAM: 11/15/2016 COMPARISON: NONE HISTORY: Back pain TECHNIQUE: 4 views FINDINGS: Exam is limited by technique and artifact. There is probably almost 1 cm anterior subluxation of L5 in relation to S1. There is depression of th e superior endplate of L2 of 15%. There is also slight loss of height of L1 vertebra. Abdominal aorta is atheromatous. There is osteopenia. Sacroiliac joints are intact. IMPRESSION: Osteopenia. There are mild compression fractures of L1 and L2 of uncertain age. There is probably a degenerative first-degree L4-5 S1 spondylolisthesis.
[2016-11-15] MEDS: APIXABAN 2.5 MG TABLET PO SCH (21:31)
[2016-11-15] MEDS: METOPROLOL TARTRATE 25 MG TAB PO SCH (21:32)
[2016-11-15] MEDS: HYDROmorphone 1 MG/ML 1 ML SYRINGE IVP PRN (21:35)
[2016-11-16 02:58] LABS: Basophils % (A) 0 %; CH 27.5; CHCM 30.7; Eosinophils % (A) 0 %; HCT 33.9 % (34.0-46.0); HDW 2.56; HGB 10.3 gm/dL (11.4-16.0); Hypochromasia Moderate; Luc # (Auto) 0.12; Luc % (Auto) 1; Lymphocytes # (A) 0.7 k/uL (1.0-4.8); Lymphocytes % (A) 6 %; MCH 27.3 pg (25.0-35.0); MCHC 30.4 g/dL (31.0-37.0); MCV 89.9 fL (80.0-100.0); Mean Platelet Volume 6.6; Monocytes # (A) 0.2 k/uL (0-1.0); Monocytes % (A) 2 %; Neutrophils # (A) 9.7 k/uL (1.3-7.7); Neutrophils % (A) 91 %; RBC 3.77 m/uL (3.80-5.40); WBC 10.7 k/uL (3.8-10.6)
[2016-11-16 03:10] LABS: Calcium 8.8 mg/dL (8.4-10.2); Potassium 4.6 mmol/L (3.5-5.1); Total Bilirubin 0.2 mg/dL (0.2-1.3)
[2016-11-16] MEDS: methylPREDNISolone SOD SUCCI 125 MG/2 ML VIAL IV SCH ×4 (05:11→23:41)
[2016-11-16 06:13] LABS: Glucose,Whole Blood 160 mg/dL (75-99)
[2016-11-16] MEDS: INSULIN LISPRO (humaLOG) 300 UNIT/3 ML VIAL SQ SCH ×4 (06:33→21:18)
[2016-11-16] MEDS: APIXABAN 2.5 MG TABLET PO SCH ×2 (07:35→20:04)
[2016-11-16] MEDS: SODIUM CHLORIDE 0.9% 1,000 ML IV SCH (07:35)
[2016-11-16] MEDS: METOPROLOL TARTRATE 25 MG TAB PO SCH ×2 (07:35→20:04)
[2016-11-16] MEDS: ASPIRIN 325 MG TAB PO SCH (07:35)
[2016-11-16] MEDS: AZITHROMYCIN 500 MG in SODIUM CHLORIDE 0.9% 250 ML IVPB SCH (07:36)
[2016-11-16] MEDS: IPRATROPIUM-ALBUTEROL 3 ML NEB INHALATION SCH ×4 (07:46→19:45)
[2016-11-16] MEDS ORDERED: VANCOMYCIN 1,250 MG in SODIUM CHLORIDE 0.9% 250 ML IVPB SCH (09:00)
[2016-11-16] MEDS ORDERED: AZITHROMYCIN 500 MG TAB PO SCH (09:00)
[2016-11-16] MEDS: PIPERACILLIN-TAZOBACTAM 3.375 GM in DEXTROSE/WATER 1 50ML.BAG IVPB SCH ×3 (09:40→23:42)
[2016-11-16] MEDS: VERAPAMIL 40 MG TAB PO SCH ×3 (09:40→21:17)
--- NOTE | 2016-11-16 10:06 | P.PN ---
Subjective Principal diagnosis: Pneumonia, lumbar compression fractures Patient was seen today on the selective care unit. She was resting in bed, she is on BiPAP. She states that she still has some soreness throughout the lumbar spine region. Objective - Vital Signs Vital signs: Vital Signs Temp 97.7 F 11/16/16 07:46 Pulse 104 H 11/16/16 08:03 Resp 20 11/16/16 07:47 BP 125/60 11/16/16 07:46 Pulse Ox 93 L 11/16/16 07:49 Intake & Output 11/15/16 11/16/16 11/16/16 18:59 06:59 18:59 Intake Total 1232.89 250 120 Output Total 800 1400 Balance 432.89 -1150 120 Weight 77.5 kg 77.5 kg Intake: Intake, IV Titration 992.89 250 Amount Azithromycin 500 mg In 250 Sodium Chloride 0.9% 250 ml @ 125 mls/hr IVPB ONCE STA Rx#:[id number] Diltiazem 125 mg In 60 Sodium Chloride 0.9% 100 ml @ 5 MG/HR 5 mls/hr IV .Q24H [facility] Rx#:[id number] Heparin Sodium,Porcine/ 52.89 D5w Pmx 25,000 unit In Dextrose/Water 1 500ml. bag @ 12 UNITS/KG/HR 17. 63 mls/hr IV .Q24H COUNTS INCLUDE 234 BEDS AT THE [facility] Rx #:[id number] Piperacillin-Tazobactam 3 50 .375 gm In Dextrose/Water 1 50ml.bag @ 12.5 mls/hr IVPB Q8HR [facility] Rx#: [id number] Sodium Chloride 0.9% 1, 480 000 ml @ 20 mls/hr IV . Q24H [facility] Rx#:[id number] Tobramycin Sulfate 140 mg 100 In Sodium Chloride 0.9% 100 ml @ 103.5 mls/hr IVPB DAILY COUNTS INCLUDE 234 BEDS AT THE [facility] Rx#: [id number] Vancomycin 1,250 mg In 250 Sodium Chloride 0.9% 250 ml @ 125 mls/hr IVPB DAILY COUNTS INCLUDE 234 BEDS AT THE [facility] Rx#:[id number] Oral 240 120 Output: Urine 800 1400 Uretheral (Fox) 800 400 Other: Voiding Method Indwelling Catheter Indwelling Catheter Indwelling Catheter - Exam Physical exam: Physical exam is unchanged since initial evaluation on 11/15/2016 - Labs CBC & Chem 7: 11/16/16 02:37 11/16/16 02:37 Labs: Abnormal Lab Results - Last 24 Hours (Table) 11/15/16 11/15/16 11/15/16 Range/Units 09:21 16:45 18:46 WBC (3.8-10.6) k/uL RBC (3.80-5.40) m/uL Hgb (11.4-16.0) gm/dL Hct (34.0-46.0) % MCHC (31.0-37.0) g/dL Plt Count (150-450) k/uL Neutrophils # (1.3-7.7) k/uL Lymphocytes # (1.0-4.8) k/uL Chloride (98-107) mmol/L Carbon Dioxide (22-30) mmol/L BUN (7-17) mg/dL Creatinine (0.52-1.04) mg/dL Glucose (74-99) mg/dL POC Glucose (mg/dL) 181 H (75-99) mg/dL Total Creatine Kinase <20 L (30-135) U/L CK-MB (CK-2) 3.0 H* (0.0-2.4) ng/mL Total Protein (6.3-8.2) g/dL Albumin (3.5-5.0) g/dL HDL Cholesterol (40-60) mg/dL 11/15/16 11/16/16 11/16/16 Range/Units 20:51 02:37 02:37 WBC 10.7 H (3.8-10.6) k/uL RBC 3.77 L (3.80-5.40) m/uL Hgb 10.3 L (11.4-16.0) gm/dL Hct 33.9 L (34.0-46.0) % MCHC 30.4 L (31.0-37.0) g/dL Plt Count 501 H (150-450) k/uL Neutrophils # 9.7 H (1.3-7.7) k/uL Lymphocytes # 0.7 L (1.0-4.8) k/uL Chloride 86 L (98-107) mmol/L Carbon Dioxide 40 H* (22-30) mmol/L BUN 40 H (7-17) mg/dL Creatinine 1.20 H (0.52-1.04) mg/dL Glucose 124 H (74-99) mg/dL POC Glucose (mg/dL) 172 H (75-99) mg/dL Total Creatine Kinase (30-135) U/L CK-MB (CK-2) (0.0-2.4) ng/mL Total Protein 6.0 L (6.3-8.2) g/dL Albumin 3.1 L (3.5-5.0) g/dL HDL Cholesterol 74 H (40-60) mg/dL 11/16/16 Range/Units 06:11 WBC (3.8-10.6) k/uL RBC (3.80-5.40) m/uL Hgb (11.4-16.0) gm/dL Hct (34.0-46.0) % MCHC (31.0-37.0) g/dL Plt Count (150-450) k/uL Neutrophils # (1.3-7.7) k/uL Lymphocytes # (1.0-4.8) k/uL Chloride (98-107) mmol/L Carbon Dioxide (22-30) mmol/L BUN (7-17) mg/dL Creatinine (0.52-1.04) mg/dL Glucose (74-99) mg/dL POC Glucose (mg/dL) 160 H (75-99) mg/dL Total Creatine Kinase (30-135) U/L CK-MB (CK-2) (0.0-2.4) ng/mL Total Protein (6.3-8.2) g/dL Albumin (3.5-5.0) g/dL HDL Cholesterol (40-60) mg/dL Microbiology - Last 24 Hours (Table) 11/15/16 13:00 Gram Stain - Preliminary Sputum Assessment and Plan Plan: Imaging: Images and reports were reviewed of the lumbar spine. L1 and L2 compression fractures noted Assessment: 1. Likely lumbar spine compression fracture, unknown level at this time 2. Pneumonia 3. A. fib 4. COPD Plan: Prescription was placed for a lumbar corset. Once patient is fitted for the brace, she may weight-bear as tolerated, I advised utilizing a walker with ambulation. Recommend PT evaluation Pain control Weight-bear as tolerated, utilize walker. No weightbearing until lumbar corset is utilized Other medical specialty recommendations Recommend follow-up in the outpatient setting for x-ray evaluation in the future, we will be available for any further questions regarding Time with Patient: Less than 30
--- NOTE | 2016-11-16 11:07 | ECHOF ---
Referral Reason:chf, chest pain MEASUREMENTS -------- HEIGHT: 160.0 cm WEIGHT: 73.5 kg BP: 158/73 RVIDd: 3.5 cm (< 3.3) IVSd: 1.2 cm (0.6 - 1.1) LVIDd: 3.9 cm (3.9 - 5.3) LVPWd: 1.1 cm (0.6 - 1.1) IVSs: 1.4 cm LVIDs: 2.9 cm LVPWs: 1.8 cm LAESV Index (A-L): 24.39 ml/m Ao Diam: 2.5 cm (2.0 - 3.7) AV Cusp: 1.4 cm (1.5 - 2.6) LA Diam: 3.8 cm (2.7 - 3.8) MV E Sandor: 1.13 m/s MV DecT: 184 ms MV A Sandor: 1.29 m/s MV E/A Ratio: 0.88 RAP: 5.00 mmHg RVSP: 18.48 mmHg FINDINGS -------- Sinus rhythm with extra systolic beats. This was a technically adequate study. The left ventricular size is normal. There is mild concentric left ventricular hypertrophy. Overall left ventricular systolic function is normal with, an EF between 55 - 60 %. The right ventricle is normal in size and function. Normal LA size by volume 22+/-6 ml/m2. The right atrium is normal in size. There is mild aortic valve sclerosis. Mild mitral annular calcification present. There is trace to mild mitral regurgitation. Trace tricuspid regurgitation present. There is no evidence of pulmonary hypertension. The right ventricular systolic pressure, as measured by Doppler, is 18.48mmHg. The pulmonic valve was not well visualized. There is no pulmonic regurgitation present. The aortic root size is normal. Normal inferior vena cava with normal inspiratory collapse consistent with estimated right atrial pressure of 5 mmHg. There is no pericardial effusion. CONCLUSIONS -------- 1. Sinus rhythm with extra systolic beats. 2. There is no evidence of pulmonary hypertension. 3. The pulmonic valve was not well visualized. 4. There is no pulmonic regurgitation present. 5. The aortic root size is normal. 6. There is no pericardial effusion. 7. This was a technically adequate study. 8. There is mild concentric left ventricular hypertrophy. 9. Overall left ventricular systolic function is normal with, an EF between 55 - 60 %. 10. Normal LA size by volume 22+/-6 ml/m2. 11. There is mild aortic valve sclerosis. 12. Mild mitral annular calcification present. 13. There is trace to mild mitral regurgitation. 14. Trace tricuspid regurgitation present. LADLE FILLER: Gamal Tucker RDCS
[2016-11-16] MEDS ORDERED: FUROSEMIDE 10 MG/ML 4 ML VIAL IV STA (11:09)
[2016-11-16 11:43] LABS: Glucose,Whole Blood 178 mg/dL (75-99)
--- NOTE | 2016-11-16 11:48 | P.PN ---
Subjective This is a pleasant 86-year-old female with a history of smoking, COPD, osteoporosis, diverticulitis, prior cholecystectomy, and some type of irregular heart rate but has not been on any medications. She presented to [facility] with complaints of low back pain about a week ago and was found to have a compression fracture that was addressed at that time and was also told that she may have some pneumonia. She presented again to [facility] with complaints of increasing shortness of breath, fatigue, lack of energy and was found to have possible pneumonia or bronchitis. She was in the hospital she complained of chest discomfort and developed some atrial fibrillation and therefore was transferred here. Her BNP was found to be 3350, she is on Lasix 40 mg by mouth daily at home. She is currently being treated for pneumonia and receiving quite a bit of fluids with her IV antibiotics. This morning she says she is feeling a bit more short of breath. Her heart rate is fairly well controlled at this time. Her weight is up from yesterday and she has some increase in her edema. She is currently not on diuretics. She is currently maintaining mostly sinus rhythm with PACs and short runs of PAT. Objective - Vital Signs Vital signs: Vital Signs Temp 97.7 F 11/16/16 07:46 Pulse 102 H 11/16/16 11:15 Resp 20 11/16/16 07:47 BP 125/60 11/16/16 07:46 Pulse Ox 93 L 11/16/16 07:49 Intake & Output 11/15/16 11/16/16 11/16/16 18:59 06:59 18:59 Intake Total 1232.89 250 1030 Output Total 800 1400 Balance 432.89 -1150 1030 Weight 77.5 kg 77.5 kg Intake: IV 120 .9 @ 10 120 Intake, IV Titration 992.89 250 790 Amount Azithromycin 500 mg In 250 Sodium Chloride 0.9% 250 ml @ 125 mls/hr IVPB DAILY [facility] Rx#:[id number] Azithromycin 500 mg In 250 Sodium Chloride 0.9% 250 ml @ 125 mls/hr IVPB ONCE [facility] Rx#:[id number] Diltiazem 125 mg In 60 Sodium Chloride 0.9% 100 ml @ 5 MG/HR 5 mls/hr IV .Q24H [facility] Rx#:[id number] Heparin Sodium,Porcine/ 52.89 D5w Pmx 25,000 unit In Dextrose/Water 1 500ml. bag @ 12 UNITS/KG/HR 17. 63 mls/hr IV .Q24H [facility] Rx #:[id number] Piperacillin-Tazobactam 3 50 50 .375 gm In Dextrose/Water 1 50ml.bag @ 12.5 mls/hr IVPB Q8HR [facility] Rx#: [id number] Sodium Chloride 0.9% 1, 480 240 000 ml @ 20 mls/hr IV . Q24H [facility] Rx#:[id number] Tobramycin Sulfate 140 mg 100 In Sodium Chloride 0.9% 100 ml @ 103.5 mls/hr IVPB DAILY [facility] Rx#: [id number] Vancomycin 1,250 mg In 250 250 Sodium Chloride 0.9% 250 ml @ 125 mls/hr IVPB DAILY [facility] Rx#:[id number] Oral 240 120 Output: Urine 800 1400 Uretheral (Fox) 800 400 Other: Voiding Method Indwelling Catheter Indwelling Catheter Indwelling Catheter - Exam PHYSICAL EXAMINATION: HEENT: Head is atraumatic, normocephalic. Pupils equal, round. Neck is supple. There is no elevated jugular venous pressure. HEART EXAMINATION: Heart sounds regular, S1 and S2 normal with a systolic murmur. CHEST EXAMINATION: Lungs reveal scattered rhonchi throughout with crackles to bilateral lower lobes. No chest wall tenderness is noted on palpation or with deep breathing. ABDOMEN: Soft, nontender. Bowel sounds are heard. No organomegaly noted. EXTREMITIES: Diminished peripheral pulses with evidence of 1+ peripheral edema and no calf tenderness noted. NEUROLOGIC patient is awake, alert and oriented x3. . - Labs CBC & Chem 7: 11/16/16 02:37 11/16/16 02:37 Labs: Abnormal Lab Results - Last 24 Hours (Table) 11/15/16 11/15/16 11/15/16 Range/Units 16:45 18:46 20:51 WBC (3.8-10.6) k/uL RBC (3.80-5.40) m/uL Hgb (11.4-16.0) gm/dL Hct (34.0-46.0) % MCHC (31.0-37.0) g/dL Plt Count (150-450) k/uL Neutrophils # (1.3-7.7) k/uL Lymphocytes # (1.0-4.8) k/uL Chloride (98-107) mmol/L Carbon Dioxide (22-30) mmol/L BUN (7-17) mg/dL Creatinine (0.52-1.04) mg/dL Glucose (74-99) mg/dL POC Glucose (mg/dL) 181 H 172 H (75-99) mg/dL Total Creatine Kinase <20 L (30-135) U/L Total Protein (6.3-8.2) g/dL Albumin (3.5-5.0) g/dL HDL Cholesterol (40-60) mg/dL 11/16/16 11/16/16 11/16/16 Range/Units 02:37 02:37 06:11 WBC 10.7 H (3.8-10.6) k/uL RBC 3.77 L (3.80-5.40) m/uL Hgb 10.3 L (11.4-16.0) gm/dL Hct 33.9 L (34.0-46.0) % MCHC 30.4 L (31.0-37.0) g/dL Plt Count 501 H (150-450) k/uL Neutrophils # 9.7 H (1.3-7.7) k/uL Lymphocytes # 0.7 L (1.0-4.8) k/uL Chloride 86 L (98-107) mmol/L Carbon Dioxide 40 H* (22-30) mmol/L BUN 40 H (7-17) mg/dL Creatinine 1.20 H (0.52-1.04) mg/dL Glucose 124 H (74-99) mg/dL POC Glucose (mg/dL) 160 H (75-99) mg/dL Total Creatine Kinase (30-135) U/L Total Protein 6.0 L (6.3-8.2) g/dL Albumin 3.1 L (3.5-5.0) g/dL HDL Cholesterol 74 H (40-60) mg/dL Microbiology - Last 24 Hours (Table) 11/15/16 13:00 Gram Stain - Preliminary Sputum Assessment and Plan Plan: Assessment and plan #1 symptoms of progressively worsening shortness of breath and cough, probable pneumonia with underlying COPD as well as an aspect of mild diastolic heart failure #2 paroxysmal atrial fibrillation #3 smoking history #4 hypertension From Cardiology's perspective, we will give the patient Lasix 40 mg IV push 1 and start the patient on lasix 20mg PO daily. Closely monitor daily weights, renal function and intake and output. Continue beta rosibel, verapamil and Eliquis. Further recommendations to follow. The above dictated assessment and findings were discussed with signing physician. The impression and plan of care have been directed as dictated. Kavita Pedro, Nurse Practitioner, acting as scribe for signing physician.
[2016-11-16 12:16] LABS: Hemoglobin A1C 6.6 % (4.2-6.1)
--- NOTE | 2016-11-16 12:46 | P.PN ---
Subjective A pleasant 85-year-old female patient, known history of COPD, known history of chronic hypoxic respiratory failure, who got transferred to our hospital because of worsening shortness of breath. The patient has been followed up by our service and she had been seen at the [facility]. The patient had a fall approximately 3 weeks ago and she sustained significant injury to her lower back. At that point she had been seen in [facility] and further x-rays at shown compression fractures in her lumbar spine. She was unable to ambulate and be independent and based on that she was taken to [facility] medical facility where she had been staying for the past 3 weeks. The patient during her stay developed shingles over the right posterior chest area and she was started on acyclovir around November 01. The patient subsequently started having increased shortness of breath. She started having increased cough chest congestion and chest tightness and wheezing. Has COPD exacerbated. Denies having any fever or chills. She got transferred to our hospital and the chest x-ray showing left lower lobe and lingular infiltrate in addition to an atelectatic band and the right midlung area. She is producing copious amount of purulent respiratory secretions. She was placed on BiPAP for respiratory support at a pressure of 12/5 cm of water with an FiO2 of 40%. Currently she is on oxygen by nasal cannula. No change in mental status. Family is at the bedside. No reported aspiration. 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 In fact, the previous sputum analysis at that was done in December 2015 showed multiple pseudomonas and MRSA elements. Her troponins are minimally elevated at 0.03 and her proBNP level is 3350. On when he wants thousand and 17 the patient is being seen in follow-up. The patient is less short of breath compared to yesterday. The sputum was sent for Gram stain and culture. The patient is not having any chest pain. No fever or chills. Overnight she was awaiting the BiPAP at a pressure of 12/5 cm of water. Currently is on normal BiPAP and she is on high flow oxygen 10 L/m nasal cannula. No nausea. No vomiting no change in mental status. Note that she has been covered with broad-spectrum antibiotics pH has been infected with pseudomonas and MRSA in the past and for that reason the patient was placed on a combination of Zosyn, Zithromax and vancomycin. X-ray of the lumbar spine was done and showed osteopenia. There is decompression of the superior endplate of L2 and order of 15%. She has been also noted to have approximately 2 fibrillation. She had short runs of PAT. Her current rhythm is sinus with PAC. The patient is on anticoagulation per cardiology's recommendation. No Cardizem drip. Objective - Vital Signs Vital signs: Vital Signs Temp 98.8 F 11/16/16 12:00 Pulse 92 11/16/16 12:00 Resp 20 11/16/16 12:00 BP 127/60 11/16/16 12:00 Pulse Ox 93 L 11/16/16 12:00 Intake & Output 11/15/16 11/16/16 11/16/16 18:59 06:59 18:59 Intake Total 1232.89 250 1030 Output Total 800 1400 425 Balance 432.89 -1150 605 Weight 77.5 kg 77.5 kg Intake: IV 120 .9 @ 10 120 Intake, IV Titration 992.89 250 790 Amount Azithromycin 500 mg In 250 Sodium Chloride 0.9% 250 ml @ 125 mls/hr IVPB DAILY [facility] Rx#:[id number] Azithromycin 500 mg In 250 Sodium Chloride 0.9% 250 ml @ 125 mls/hr IVPB ONCE [facility] Rx#:[id number] Diltiazem 125 mg In 60 Sodium Chloride 0.9% 100 ml @ 5 MG/HR 5 mls/hr IV .Q24H [facility] Rx#:[id number] Heparin Sodium,Porcine/ 52.89 D5w Pmx 25,000 unit In Dextrose/Water 1 500ml. bag @ 12 UNITS/KG/HR 17. 63 mls/hr IV .Q24H [facility] Rx #:[id number] Piperacillin-Tazobactam 3 50 50 .375 gm In Dextrose/Water 1 50ml.bag @ 12.5 mls/hr IVPB Q8HR [facility] Rx#: [id number] Sodium Chloride 0.9% 1, 480 240 000 ml @ 20 mls/hr IV . Q24H [facility] Rx#:[id number] Tobramycin Sulfate 140 mg 100 In Sodium Chloride 0.9% 100 ml @ 103.5 mls/hr IVPB DAILY [facility] Rx#: [id number] Vancomycin 1,250 mg In 250 250 Sodium Chloride 0.9% 250 ml @ 125 mls/hr IVPB DAILY [facility] Rx#:[id number] Oral 240 120 Output: Urine 800 1400 425 Uretheral (Fox) 800 400 425 Other: Voiding Method Indwelling Catheter Indwelling Catheter Indwelling Catheter - Exam Head exam was generally normal. There was no scleral icterus or corneal arcus. Mucous membranes were moist. Neck is short and supple and there is significant crowding of the posterior oropharynx. There is no goiter or neck masses. Lungs sounds are diminished bilaterally along with some scattered expiratory wheezes and some prolongation of expiratory phase of breathing. Overall bronchospasm wheezing is improved compared to yesterday. Heart sounds are regular, positive S1-S2, no significant murmurs appreciated.Abdominal exam revealed normal bowel sounds. The abdomen was soft, non-tender, and without masses, organomegaly, or appreciable enlargement of the abdominal aorta.Examination of the extremities revealed easily palpable radial, femoral and pedal pulses. There was no cyanosis, clubbing or edema. - Labs CBC & Chem 7: 11/16/16 02:37 11/16/16 02:37 Labs: Abnormal Lab Results - Last 24 Hours (Table) 11/15/16 11/15/16 11/15/16 Range/Units 16:45 18:46 20:51 WBC (3.8-10.6) k/uL RBC (3.80-5.40) m/uL Hgb (11.4-16.0) gm/dL Hct (34.0-46.0) % MCHC (31.0-37.0) g/dL Plt Count (150-450) k/uL Neutrophils # (1.3-7.7) k/uL Lymphocytes # (1.0-4.8) k/uL Chloride (98-107) mmol/L Carbon Dioxide (22-30) mmol/L BUN (7-17) mg/dL Creatinine (0.52-1.04) mg/dL Glucose (74-99) mg/dL POC Glucose (mg/dL) 181 H 172 H (75-99) mg/dL Total Creatine Kinase <20 L (30-135) U/L Total Protein (6.3-8.2) g/dL Albumin (3.5-5.0) g/dL HDL Cholesterol (40-60) mg/dL 11/16/16 11/16/16 11/16/16 Range/Units 02:37 02:37 06:11 WBC 10.7 H (3.8-10.6) k/uL RBC 3.77 L (3.80-5.40) m/uL Hgb 10.3 L (11.4-16.0) gm/dL Hct 33.9 L (34.0-46.0) % MCHC 30.4 L (31.0-37.0) g/dL Plt Count 501 H (150-450) k/uL Neutrophils # 9.7 H (1.3-7.7) k/uL Lymphocytes # 0.7 L (1.0-4.8) k/uL Chloride 86 L (98-107) mmol/L Carbon Dioxide 40 H* (22-30) mmol/L BUN 40 H (7-17) mg/dL Creatinine 1.20 H (0.52-1.04) mg/dL Glucose 124 H (74-99) mg/dL POC Glucose (mg/dL) 160 H (75-99) mg/dL Total Creatine Kinase (30-135) U/L Total Protein 6.0 L (6.3-8.2) g/dL Albumin 3.1 L (3.5-5.0) g/dL HDL Cholesterol 74 H (40-60) mg/dL 11/16/16 Range/Units 11:42 WBC (3.8-10.6) k/uL RBC (3.80-5.40) m/uL Hgb (11.4-16.0) gm/dL Hct (34.0-46.0) % MCHC (31.0-37.0) g/dL Plt Count (150-450) k/uL Neutrophils # (1.3-7.7) k/uL Lymphocytes # (1.0-4.8) k/uL Chloride (98-107) mmol/L Carbon Dioxide (22-30) mmol/L BUN (7-17) mg/dL Creatinine (0.52-1.04) mg/dL Glucose (74-99) mg/dL POC Glucose (mg/dL) 178 H (75-99) mg/dL Total Creatine Kinase (30-135) U/L Total Protein (6.3-8.2) g/dL Albumin (3.5-5.0) g/dL HDL Cholesterol (40-60) mg/dL Microbiology - Last 24 Hours (Table) 11/15/16 13:00 Gram Stain - Preliminary Sputum Sputum Culture - Preliminary 11/15/16 08:02 Blood Culture - Preliminary Blood No Growth after 24 hours 11/15/16 09:21 Blood Culture - Preliminary Blood No Growth after 24 hours Assessment and Plan Plan: Assessment 1 acute left lung pneumonia involving the lingula in the left lower lobe segment. There is also some atelectatic changes in the right midlung. Rule out pneumonia with mucous plugging secondary atelectasis. Rule out infection with MRSA or pseudomonas nontender the patient has been colonized and infected by these microorganisms in the past. 2 acute on top of chronic hypoxic respiratory failure 3 acute COPD exacerbation with BiPAP dependent respiratory failure 4 obesity 5 coronary artery disease 6 CHF with diastolic dysfunction secondary pulmonary hypertension with a PA pressure of around 45 7 shingles, treated with acyclovir 8 fall with back pain and compression fractures 9 osteoporosis 10 diverticular disease 11 medical debility seconds above-mentioned comorbidities 12 paroxysmal atrial fibrillation and currently rhythm is sinus Plan Clinically improving. Continue same antibiotic coverage. Continue bronchodilators. Continue systemic steroids. Repeat chest x-ray in the morning. Awaiting sputum Gram stain and culture. No modification antibiotic still the sputum culture is finalized. We'll continue to follow. Clinically improved compared to yesterday.
--- NOTE | 2016-11-16 15:06 | XR ---
EXAMINATION TYPE: XR chest 1V DATE OF EXAM: 11/16/2016 COMPARISON: 11/15/2016 INDICATION: COPD CHF TECHNIQUE: Single frontal view of the chest is obtained. FINDINGS: The heart size is normal. The pulmonary vasculature is normal. There is a mild infiltrate within the lingula. Some plate atelectasis at the right base. EKG leads overlie the chest IMPRESSION: 1. Clinical correlation recommended for atelectasis versus pneumonia within the lingula. This could b e resolving atypical pulmonary edema. 2. Plate atelectasis right lower lobe.
[2016-11-16] MEDS: HYDROmorphone 1 MG/ML 1 ML SYRINGE IVP PRN (15:20)
--- NOTE | 2016-11-16 15:20 | HP ---
CHIEF COMPLAINT: 86-year-old white male admitted with chronic respiratory hypoxemic failure due to worsening shortness of breath, aspiration pneumonia. She apparently fell three weeks ago at which time significant back injury showed some fractures in her lumbar spine. Unable to ambulate independent at that point. In the retirement she developed shingles of the right posterior chest area. Started on acyclovir on October 31. She had increasing shortness of breath, cough, congestion, tightness and wheezing. She was admitted with COPD, exacerbation. Chest x-ray showed left lower lobe lingula infiltrate, atelectasis in right midlung and copious amounts of purulent secretions. Placed on BiPAP and FIO2 of 40% and transferred down here from up [facility]. Most likely she had MRSA in the lungs in the past, possible MRSA pneumonia at this point. BNP was elevated 3350 and troponin elevated at 0.09 so she has a component of congestive heart failure also. REVIEW OF SYSTEMS: CONSTITUTIONAL: Weakness, fatigue. OPHTHALMOLOGIC: Negative. ENT: Hearing loss. PULMONARY/CARDIAC: As mentioned above. MUSCULOSKELETAL: As mentioned above. NEUROLOGIC: Weakness. PSYCH: Negative. ENDOCRINE: Negative. ALLERGY/IMMUNE: Negative. HEMATOLOGIC/LYMPH: Negative. PAST MEDICAL HISTORY: Asthma, COPD, dyslipidemia, hypertension, myocardial infarction, osteoarthritis, pneumonia. Prior pneumonia of MRSA and Pseudomonas. Chronic hypoxemic respiratory failure at 3 liters, pulmonary hypertension, diverticular disease, chronic back pain, compression fracture, vitamin D deficiency, osteoporosis, hypertension, irregular heartbeat, atrial fibrillation , history of MRSA. SURGERIES: Appendectomy, bowel surgery, , cholecystectomy, hysterectomy , bowel resection due to diverticular disease, colonoscopy, PICC line insertion and removal. SOCIAL HISTORY: In [facility] for rehab, oxygen at 3-L at home, uses cane for walking, normally can drive. Nebulizer at home. Former smoker. She smoked for about 50 to 60 years, 1-1/2 to 2 packs per day. FAMILY HISTORY: Father stomach cancer. Mother of motor vehicle accident. HOME MEDICATIONS: 1. Vitamin D. 2. Pravachol. 3. Multivitamins. 4. Fish. 5. Vitamin B6. 6. Coconut oil. 7. Advair. 8. DuoNeb. 9. Darline. 10. Lasix. 11. Aleve. 12. Potassium. ALLERGIES: LEVAQUIN. VITAL SIGNS: Pulse 92, respiratory rate 25 to 35, blood pressure 140s to 180s over 60s to 70s. O2 is 98 to 96%, temp afebrile. Started on azithromycin, diltiazem for atrial fibrillation, rapid ventricular rate. Started on Zosyn and azithromycin for pneumonia, possible MRSA pneumonia. ENDOCRINE: BMI is over 40. MUSCULOSKELETAL: 3/5 strength x4 extremities. PSYCH: She is mostly obtunded. She does move all extremities. CAROTID: Decreased carotid sounds. VASCULAR: Normal dorsalis pedis, posterior tibial and radial pulse. LUNGS: Generalized diminished air x4 lung tony. SKIN: She has a shingles type lesions with some vesicles and posterior right chest area. White count 16.8, platelet count 565. ASSESSMENT: 1. Acute left lung pneumonia involving the lingula left lower lobe segment. 2. Shingles right chest. 3. Chronic hyperoxemic respiratory failure. 4. penitentiary associated pneumonia most likely Gram-negative in nature. 5. Chronic obstructive pulmonary disease acute exacerbation with BiPAP dependent respiratory failure. 6. Obesity. 7. Coronary artery disease. 8. Congestive heart failure with diastolic dysfunction due to pulmonary hypertension. Ejection fraction about 45. 9. Shingles, using acyclovir. 10. Compression fractures lower back. 11. Osteoporosis. 12. Diverticular disease. 13. Chronic debility. Continue with toenail treatments, IV vancomycin, IV Zosyn, oral Zithromax, coverage for MRSA and Pseudomonas, IV Solu-Medrol. Will get consultation with [facility] for lumbar fractures. Please see further orders. MTDD
[2016-11-16 16:33] LABS: Glucose,Whole Blood 183 mg/dL (75-99)
[2016-11-16 20:47] LABS: Glucose,Whole Blood 289 mg/dL (75-99)
[2016-11-16 22:31] LABS: Glucose,Whole Blood 204 mg/dL (75-99)
[2016-11-17] MEDS: HYDROmorphone 1 MG/ML 1 ML SYRINGE IVP PRN (00:25)
[2016-11-17 06:12] LABS: Glucose,Whole Blood 178 mg/dL (75-99)
[2016-11-17] MEDS: INSULIN LISPRO (humaLOG) 300 UNIT/3 ML VIAL SQ SCH ×4 (06:20→19:51)
[2016-11-17] MEDS: methylPREDNISolone SOD SUCCI 125 MG/2 ML VIAL IV SCH ×4 (06:20→23:13)
[2016-11-17 06:21] LABS: Mean Platelet Volume 6.9
[2016-11-17 06:35] LABS: Calcium 8.4 mg/dL (8.4-10.2); Potassium 3.3 mmol/L (3.5-5.1)
[2016-11-17] MEDS: IPRATROPIUM-ALBUTEROL 3 ML NEB INHALATION SCH ×4 (07:30→19:59)
[2016-11-17] MEDS: SODIUM CHLORIDE 0.9% 1,000 ML IV SCH (07:34)
[2016-11-17] MEDS: METOPROLOL TARTRATE 25 MG TAB PO SCH ×2 (07:35→19:48)
[2016-11-17] MEDS: APIXABAN 2.5 MG TABLET PO SCH ×2 (07:35→19:48)
[2016-11-17] MEDS: FUROSEMIDE 20 MG TAB PO SCH (07:35)
[2016-11-17] MEDS: ASPIRIN 325 MG TAB PO SCH (07:35)
[2016-11-17] MEDS: VERAPAMIL 40 MG TAB PO SCH ×3 (07:35→23:13)
[2016-11-17] MEDS: AZITHROMYCIN 500 MG in SODIUM CHLORIDE 0.9% 250 ML IVPB SCH (07:38)
[2016-11-17] MEDS: PIPERACILLIN-TAZOBACTAM 3.375 GM in DEXTROSE/WATER 1 50ML.BAG IVPB SCH ×3 (07:46→23:13)
--- NOTE | 2016-11-17 08:17 | XR ---
EXAMINATION TYPE: XR chest 1V DATE OF EXAM: 11/17/2016 HISTORY: Shortness of breath. COMPARISON: 11/16/2016 TECHNIQUE: Single view of the chest is submitted. FINDINGS: Demonstrated are scattered senescent parenchymal change. There is right basilar discoid atelectasis and/or infiltrate. Overall no change. The heart is stable. Hilar and mediastinal structures are within normal limits. Degenerative changes are seen of the dorsal spine. IMPRESSION: 1. There is right basilar discoid atelectasis and/or infiltrate. Overall no change.
--- NOTE | 2016-11-17 11:39 | P.PN ---
Subjective A pleasant 85-year-old female patient, known history of COPD, known history of chronic hypoxic respiratory failure, who got transferred to our hospital because of worsening shortness of breath. The patient has been followed up by our service and she had been seen at the [place] office. The patient had a fall approximately 3 weeks ago and she sustained significant injury to her lower back. At that point she had been seen in [facility] and further x-rays at shown compression fractures in her lumbar spine. She was unable to ambulate and be independent and based on that she was taken to [facility] medical facility where she had been staying for the past 3 weeks. The patient during her stay developed shingles over the right posterior chest area and she was started on acyclovir around November 01. The patient subsequently started having increased shortness of breath. She started having increased cough chest congestion and chest tightness and wheezing. Has COPD exacerbated. Denies having any fever or chills. She got transferred to our hospital and the chest x-ray showing left lower lobe and lingular infiltrate in addition to an atelectatic band and the right midlung area. She is producing copious amount of purulent respiratory secretions. She was placed on BiPAP for respiratory support at a pressure of 12/5 cm of water with an FiO2 of 40%. Currently she is on oxygen by nasal cannula. No change in mental status. Family is at the bedside. No reported aspiration. 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 In fact, the previous sputum analysis at that was done in December 2015 showed multiple pseudomonas and MRSA elements. Her troponins are minimally elevated at 0.03 and her proBNP level is 3350. On 11/16/16 the patient is being seen in follow-up. The patient is less short of breath compared to yesterday. The sputum was sent for Gram stain and culture. The patient is not having any chest pain. No fever or chills. Overnight she was awaiting the BiPAP at a pressure of 12/5 cm of water. Currently is on normal BiPAP and she is on high flow oxygen 10 L/m nasal cannula. No nausea. No vomiting no change in mental status. Note that she has been covered with broad-spectrum antibiotics pH has been infected with pseudomonas and MRSA in the past and for that reason the patient was placed on a combination of Zosyn, Zithromax and vancomycin. X-ray of the lumbar spine was done and showed osteopenia. There is decompression of the superior endplate of L2 and order of 15%. She has been also noted to have paroxysmal atrial fibrillation. She had short runs of PAT. Her current rhythm is sinus with PAC. The patient is on anticoagulation per cardiology's recommendation. No Cardizem drip. On 11/17/2016, the patient is being seen in follow-up. The patient is doing well. No specific complaints. Still using the BiPAP overnight at a pressure of 12/5 cm of water. Cough and chest congestion is improved. No fever. No chills. No night sweats. The patient is in sinus rhythm. She has developed a mild component of prerenal azotemia and for that reason she was placed on oral Lasix 20 mg by mouth daily. She is also on oral anticoagulants. He remains on IV Solu-Medrol. No nausea. No vomiting. No diarrhea. No change in mental status. No other complaints Objective - Vital Signs Vital signs: Vital Signs Temp 99.0 F 11/17/16 07:31 Pulse 80 11/17/16 07:49 Resp 20 11/17/16 07:32 BP 154/76 11/17/16 07:31 Pulse Ox 96 11/17/16 07:31 Intake & Output 11/16/16 11/17/16 11/17/16 18:59 06:59 18:59 Intake Total 1450 200 Output Total 1125 700 Balance 325 -700 200 Weight 77.5 kg 71.5 kg Intake: IV 120 .9 @ 10 120 Intake, IV Titration 790 Amount Azithromycin 500 mg In 250 Sodium Chloride 0.9% 250 ml @ 125 mls/hr IVPB DAILY [facility] Rx#:[id number] Piperacillin-Tazobactam 3 50 .375 gm In Dextrose/Water 1 50ml.bag @ 12.5 mls/hr IVPB Q8HR [facility] Rx#: [id number] Sodium Chloride 0.9% 1, 240 000 ml @ 20 mls/hr IV . Q24H [facility] Rx#:[id number] Vancomycin 1,250 mg In 250 Sodium Chloride 0.9% 250 ml @ 125 mls/hr IVPB DAILY [facility] Rx#:[id number] Oral 540 200 Output: Urine 1125 700 Uretheral (Fox) 425 Other: Voiding Method Indwelling Catheter Indwelling Catheter Indwelling Catheter # Voids 1 # Bowel Movements 1 - Exam Head exam was generally normal. There was no scleral icterus or corneal arcus. Mucous membranes were moist. Neck is short and supple and there is significant crowding of the posterior oropharynx. There is no goiter or neck masses. Lungs sounds are diminished bilaterally along with some scattered expiratory wheezes and some prolongation of expiratory phase of breathing. Overall bronchospasm wheezing is improved compared to yesterday. Heart sounds are regular, positive S1-S2, no significant murmurs appreciated.Abdominal exam revealed normal bowel sounds. The abdomen was soft, non-tender, and without masses, organomegaly, or appreciable enlargement of the abdominal aorta.Examination of the extremities revealed easily palpable radial, femoral and pedal pulses. There was no cyanosis, clubbing or edema. - Labs CBC & Chem 7: 11/17/16 05:42 11/17/16 05:42 Labs: Abnormal Lab Results - Last 24 Hours (Table) 11/16/16 11/16/16 11/16/16 Range/Units 02:37 11:42 16:32 Sodium (137-145) mmol/L Potassium (3.5-5.1) mmol/L Chloride (98-107) mmol/L Carbon Dioxide (22-30) mmol/L BUN (7-17) mg/dL Creatinine (0.52-1.04) mg/dL Glucose (74-99) mg/dL POC Glucose (mg/dL) 178 H 183 H (75-99) mg/dL Hemoglobin A1c 6.6 H (4.2-6.1) % 11/16/16 11/16/16 11/17/16 Range/Units 20:46 22:29 05:42 Sodium 136 L (137-145) mmol/L Potassium 3.3 L (3.5-5.1) mmol/L Chloride 86 L (98-107) mmol/L Carbon Dioxide 41 H* (22-30) mmol/L BUN 43 H (7-17) mg/dL Creatinine 1.31 H (0.52-1.04) mg/dL Glucose 149 H (74-99) mg/dL POC Glucose (mg/dL) 289 H 204 H (75-99) mg/dL Hemoglobin A1c (4.2-6.1) % 11/17/16 Range/Units 06:11 Sodium (137-145) mmol/L Potassium (3.5-5.1) mmol/L Chloride (98-107) mmol/L Carbon Dioxide (22-30) mmol/L BUN (7-17) mg/dL Creatinine (0.52-1.04) mg/dL Glucose (74-99) mg/dL POC Glucose (mg/dL) 178 H (75-99) mg/dL Hemoglobin A1c (4.2-6.1) % Microbiology - Last 24 Hours (Table) 11/15/16 13:00 Gram Stain - Preliminary Sputum Sputum Culture - Final 11/15/16 08:02 Blood Culture - Preliminary Blood No Growth after 24 hours 11/15/16 09:21 Blood Culture - Preliminary Blood No Growth after 24 hours Assessment and Plan Plan: Assessment 1 acute left lung pneumonia involving the lingula in the left lower lobe segment. There is also some atelectatic changes in the right midlung. Rule out pneumonia with mucous plugging secondary atelectasis. Rule out infection with MRSA or pseudomonas nontender the patient has been colonized and infected by these microorganisms in the past. 2 acute on top of chronic hypoxic respiratory failure 3 acute COPD exacerbation with BiPAP dependent respiratory failure 4 obesity 5 coronary artery disease 6 CHF with diastolic dysfunction secondary pulmonary hypertension with a PA pressure of around 45 7 shingles, treated with acyclovir 8 fall with back pain and compression fractures 9 osteoporosis 10 diverticular disease 11 medical debility seconds above-mentioned comorbidities 12 paroxysmal atrial fibrillation and currently rhythm is sinus 13. pre Renal azotemia Plan Clinically improving. Chest x-ray from today showing improvement in the left lower lobe pneumonia. There is a right basilar discoid atelectasis which is still present. Clinically improving. Sputum cultures have not resulted in to anything at this point. The patient is on antibiotics. The patient will be kept on accommodation Zosyn and vancomycin and IV Solu-Medrol. She is also on bronchodilators [id number]. The patient was switched to oral Lasix. Will monitor renal function. We'll continue to follow.
[2016-11-17 12:02] LABS: Glucose,Whole Blood 176 mg/dL (75-99)
--- NOTE | 2016-11-17 13:11 | P.PN ---
Subjective This is a pleasant 86-year-old female with a history of smoking, COPD, osteoporosis, diverticulitis, prior cholecystectomy, and some type of irregular heart rate but has not been on any medications. She presented to [facility] with complaints of low back pain about a week ago and was found to have a compression fracture that was addressed at that time and was also told that she may have some pneumonia. She presented again to [facility] with complaints of increasing shortness of breath, fatigue, lack of energy and was found to have possible pneumonia or bronchitis. She was in the hospital she complained of chest discomfort and developed some atrial fibrillation and therefore was transferred here. Her BNP was found to be 3350, she is on Lasix 40 mg by mouth daily at home. She is currently being treated for pneumonia and receiving quite a bit of fluids with her IV antibiotics. She is on PO Lasix, her weight today is down 6 kg from admission. Echocardiogram with Doppler study was performed which revealed an ejection fraction of 55-60 %. Objective - Vital Signs Vital signs: Vital Signs Temp 97.7 F 11/17/16 12:00 Pulse 78 11/17/16 12:00 Resp 18 11/17/16 12:00 BP 144/64 11/17/16 12:00 Pulse Ox 97 11/17/16 12:00 Intake & Output 11/16/16 11/17/16 11/17/16 18:59 06:59 18:59 Intake Total 1450 200 Output Total 1125 700 700 Balance 325 -700 -500 Weight 77.5 kg 71.5 kg Intake: IV 120 .9 @ 10 120 Intake, IV Titration 790 Amount Azithromycin 500 mg In 250 Sodium Chloride 0.9% 250 ml @ 125 mls/hr IVPB DAILY [facility] Rx#:[id number] Piperacillin-Tazobactam 3 50 .375 gm In Dextrose/Water 1 50ml.bag @ 12.5 mls/hr IVPB Q8HR [facility] Rx#: [id number] Sodium Chloride 0.9% 1, 240 000 ml @ 20 mls/hr IV . Q24H [facility] Rx#:[id number] Vancomycin 1,250 mg In 250 Sodium Chloride 0.9% 250 ml @ 125 mls/hr IVPB DAILY [facility] Rx#:[id number] Oral 540 200 Output: Urine 1125 700 700 Uretheral (Fox) 425 Other: Voiding Method Indwelling Catheter Indwelling Catheter Indwelling Catheter # Voids 1 # Bowel Movements 1 - Exam PHYSICAL EXAMINATION: HEENT: Head is atraumatic, normocephalic. Pupils equal, round. Neck is supple. There is no elevated jugular venous pressure. HEART EXAMINATION: Heart sounds regular, S1 and S2 normal with a systolic murmur. CHEST EXAMINATION: Lungs reveal scattered wheezing anteriorly with fine crackles to the bases posteriorly ABDOMEN: Soft, nontender. Bowel sounds are heard. No organomegaly noted. EXTREMITIES: Diminished peripheral pulses with evidence of 1+ peripheral edema and no calf tenderness noted. NEUROLOGIC patient is awake, alert and oriented x3. . - Labs CBC & Chem 7: 11/17/16 05:42 11/17/16 05:42 Labs: Abnormal Lab Results - Last 24 Hours (Table) 11/16/16 11/16/16 11/16/16 Range/Units 02:37 16:32 20:46 Sodium (137-145) mmol/L Potassium (3.5-5.1) mmol/L Chloride (98-107) mmol/L Carbon Dioxide (22-30) mmol/L BUN (7-17) mg/dL Creatinine (0.52-1.04) mg/dL Glucose (74-99) mg/dL POC Glucose (mg/dL) 183 H 289 H (75-99) mg/dL Hemoglobin A1c 6.6 H (4.2-6.1) % 11/16/16 11/17/16 11/17/16 Range/Units 22:29 05:42 06:11 Sodium 136 L (137-145) mmol/L Potassium 3.3 L (3.5-5.1) mmol/L Chloride 86 L (98-107) mmol/L Carbon Dioxide 41 H* (22-30) mmol/L BUN 43 H (7-17) mg/dL Creatinine 1.31 H (0.52-1.04) mg/dL Glucose 149 H (74-99) mg/dL POC Glucose (mg/dL) 204 H 178 H (75-99) mg/dL Hemoglobin A1c (4.2-6.1) % 11/17/16 Range/Units 11:49 Sodium (137-145) mmol/L Potassium (3.5-5.1) mmol/L Chloride (98-107) mmol/L Carbon Dioxide (22-30) mmol/L BUN (7-17) mg/dL Creatinine (0.52-1.04) mg/dL Glucose (74-99) mg/dL POC Glucose (mg/dL) 176 H (75-99) mg/dL Hemoglobin A1c (4.2-6.1) % Microbiology - Last 24 Hours (Table) 11/15/16 08:02 Blood Culture - Preliminary Blood No Growth after 48 hours 11/15/16 09:21 Blood Culture - Preliminary Blood No Growth after 48 hours 11/15/16 13:00 Gram Stain - Preliminary Sputum Sputum Culture - Final Assessment and Plan Plan: Assessment and plan #1 symptoms of progressively worsening shortness of breath and cough, probable pneumonia with underlying COPD as well as an aspect of mild diastolic heart failure #2 paroxysmal atrial fibrillation #3 smoking history #4 hypertension Cardiology's perspective we will recommend to continue the patient on her current medications. Follow-up appointment will be made post discharge.
[2016-11-17 16:19] LABS: Glucose,Whole Blood 277 mg/dL (75-99)
[2016-11-17 19:53] LABS: Glucose,Whole Blood 256 mg/dL (75-99)
[2016-11-17] MEDS ORDERED: Potassium Replacement Protocol 1 EACH MISC MISCELLANE PRN (23:30)
[2016-11-18] MEDS ORDERED: POTASSIUM CHLORIDE 10 MEQ, LIDOCAINE 2% INJ 10 MG in SODIUM CHLORIDE 0.9% 100 ML IV SCH ×3
[2016-11-18] MEDS: HYDROmorphone 1 MG/ML 1 ML SYRINGE IVP PRN ×2 (03:19→15:21)
[2016-11-18 05:41] LABS: Glucose,Whole Blood 195 mg/dL (75-99)
[2016-11-18] MEDS: SODIUM CHLORIDE 0.9% 1,000 ML IV SCH (05:51)
[2016-11-18] MEDS ORDERED: VANCOMYCIN 1,250 MG in SODIUM CHLORIDE 0.9% 250 ML IVPB SCH (06:00)
[2016-11-18 06:16] LABS: Mean Platelet Volume 6.7
[2016-11-18 06:28] LABS: Calcium 8.3 mg/dL (8.4-10.2)
[2016-11-18] MEDS: methylPREDNISolone SOD SUCCI 125 MG/2 ML VIAL IV SCH ×4 (06:28→23:44)
[2016-11-18] MEDS: INSULIN LISPRO (humaLOG) 300 UNIT/3 ML VIAL SQ SCH ×4 (06:30→21:06)
[2016-11-18 06:42] LABS: Potassium 2.9 mmol/L (3.5-5.1)
[2016-11-18] MEDS ORDERED: Potassium Replacement Protocol 1 EACH MISC MISCELLANE PRN (06:53)
[2016-11-18] MEDS: POTASSIUM CHLORIDE 10 MEQ, LIDOCAINE 2% INJ 10 MG in SODIUM CHLORIDE 0.9% 100 ML IV SCH ×2 (07:44→09:05)
[2016-11-18] MEDS: AZITHROMYCIN 500 MG in SODIUM CHLORIDE 0.9% 250 ML IVPB SCH (07:44)
[2016-11-18] MEDS: APIXABAN 2.5 MG TABLET PO SCH ×2 (07:45→20:35)
[2016-11-18] MEDS: FUROSEMIDE 20 MG TAB PO SCH (07:45)
[2016-11-18] MEDS: ASPIRIN 81 MG CHEW PO SCH (07:45)
[2016-11-18] MEDS: VERAPAMIL 40 MG TAB PO SCH ×3 (07:45→20:34)
[2016-11-18] MEDS: METOPROLOL TARTRATE 25 MG TAB PO SCH ×2 (07:45→20:34)
[2016-11-18] MEDS: IPRATROPIUM-ALBUTEROL 3 ML NEB INHALATION SCH ×4 (08:44→19:57)
--- NOTE | 2016-11-18 09:26 | XR ---
EXAMINATION TYPE: XR chest 2V DATE OF EXAM: 11/18/2016 COMPARISON: NONE HISTORY: Shortness of breath TECHNIQUE: Frontal and lateral views of the chest are obtained. FINDINGS: Scattered senescent parenchymal changes noted. Hyperinflation compatible with COPD. Stable right basilar infiltrate or atelectasis as well as fluid within the minor fissure. Heart size is stable. Mediastinal structures are stable and grossly unremarkable. No evidence for hilar prominence. Degenerative changes dorsal spine. IMPRESSION: 1. Stable chest.
--- NOTE | 2016-11-18 10:10 | PN ---
SUBJECTIVE: 86-year-old white female CHF, COPD exacerbation, pneumonia, ( ) , chest pain, A. fib with rapid ventricular response. Patient is improving from clinical standpoint. She is up sitting in a chair today. Weaning oxygen. Lungs are scattered rhonchi and wheeze. CARDIOVASCULAR: S1, S2. GI: Distended obesity. HEMATOLOGIC: Negative Homans. ASSESSMENT: 1. Congestive heart failure exacerbation. 2. Chronic obstructive pulmonary disease exacerbation. 3. ( ). 4. Chest pain. 5. Atrial fibrillation with rapid ventricular response. PLAN: Wean steroids, wean Lasix. Continue with updraft treatments. Monitor her electrolytes and monitor heart rate with A. fib. will discharge her home in the next 2 to 3 days. NIMESH
[2016-11-18] MEDS: PIPERACILLIN-TAZOBACTAM 3.375 GM in DEXTROSE/WATER 1 50ML.BAG IVPB SCH ×3 (10:27→23:43)
[2016-11-18 11:32] LABS: Glucose,Whole Blood 154 mg/dL (75-99)
[2016-11-18] MEDS: POTASSIUM CHLORIDE ER 10 MEQ TAB.ER.PRT PO SCH ×2 (12:00→20:35)
--- NOTE | 2016-11-18 13:00 | P.PN ---
Subjective A pleasant 85-year-old female patient, known history of COPD, known history of chronic hypoxic respiratory failure, who got transferred to our hospital because of worsening shortness of breath. The patient has been followed up by our service and she had been seen at the [place] office. The patient had a fall approximately 3 weeks ago and she sustained significant injury to her lower back. At that point she had been seen in [facility] and further x-rays at shown compression fractures in her lumbar spine. She was unable to ambulate and be independent and based on that she was taken to [facility] medical facility where she had been staying for the past 3 weeks. The patient during her stay developed shingles over the right posterior chest area and she was started on acyclovir around November 01. The patient subsequently started having increased shortness of breath. She started having increased cough chest congestion and chest tightness and wheezing. Has COPD exacerbated. Denies having any fever or chills. She got transferred to our hospital and the chest x-ray showing left lower lobe and lingular infiltrate in addition to an atelectatic band and the right midlung area. She is producing copious amount of purulent respiratory secretions. She was placed on BiPAP for respiratory support at a pressure of 12/5 cm of water with an FiO2 of 40%. Currently she is on oxygen by nasal cannula. No change in mental status. Family is at the bedside. No reported aspiration. 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 In fact, the previous sputum analysis at that was done in December 2015 showed multiple pseudomonas and MRSA elements. Her troponins are minimally elevated at 0.03 and her proBNP level is 3350. On 11/16/16 the patient is being seen in follow-up. The patient is less short of breath compared to yesterday. The sputum was sent for Gram stain and culture. The patient is not having any chest pain. No fever or chills. Overnight she was awaiting the BiPAP at a pressure of 12/5 cm of water. Currently is on normal BiPAP and she is on high flow oxygen 10 L/m nasal cannula. No nausea. No vomiting no change in mental status. Note that she has been covered with broad-spectrum antibiotics pH has been infected with pseudomonas and MRSA in the past and for that reason the patient was placed on a combination of Zosyn, Zithromax and vancomycin. X-ray of the lumbar spine was done and showed osteopenia. There is decompression of the superior endplate of L2 and order of 15%. She has been also noted to have paroxysmal atrial fibrillation. She had short runs of PAT. Her current rhythm is sinus with PAC. The patient is on anticoagulation per cardiology's recommendation. No Cardizem drip. On 11/17/2016, the patient is being seen in follow-up. The patient is doing well. No specific complaints. Still using the BiPAP overnight at a pressure of 12/5 cm of water. Cough and chest congestion is improved. No fever. No chills. No night sweats. The patient is in sinus rhythm. She has developed a mild component of prerenal azotemia and for that reason she was placed on oral Lasix 20 mg by mouth daily. She is also on oral anticoagulants. He remains on IV Solu-Medrol. No nausea. No vomiting. No diarrhea. No change in mental status. No other complaints On 11/15/2016 I'm seeing the patient in follow-up. She is doing well. No specific complaints otherwise for now. The chest x-ray showed a stable finding with chronic senescent changes and hyperinflation consistent with COPD. No fever. No chills. No night sweats. Sputum cultures had not yielded into anything that's positive. The patient's potassium level is at 2.9 is to be replaced. Creatinine is stable at 1.1. The patient on oral Lasix. The patient is also on bronchodilators systemic steroids and broad-spectrum antibiotics. Objective - Vital Signs Vital signs: Vital Signs Temp 97.8 F 11/18/16 11:39 Pulse 76 11/18/16 12:20 Resp 20 11/18/16 11:39 BP 164/72 11/18/16 11:39 Pulse Ox 97 11/18/16 12:17 Intake & Output 11/17/16 11/18/16 11/18/16 18:59 06:59 18:59 Intake Total 680 340 870 Output Total 1600 850 400 Balance -920 510 470 Weight 70.5 kg Intake: IV 80 .9 @ 10 80 Intake, IV Titration 260 750 Amount Azithromycin 500 mg In 250 Sodium Chloride 0.9% 250 ml @ 125 mls/hr IVPB DAILY [facility] Rx#:[id number] Piperacillin-Tazobactam 3 50 .375 gm In Dextrose/Water 1 50ml.bag @ 12.5 mls/hr IVPB Q8HR [facility] Rx#: [id number] Potassium Chloride 10 meq 100 Lidocaine 2% Inj 10 mg In Sodium Chloride 0.9% 100 ml @ 100 mls/hr IV Q1HR [facility] Rx#:[id number] Potassium Chloride 10 meq 200 Lidocaine 2% Inj 10 mg In Sodium Chloride 0.9% 100 ml @ 100 mls/hr IV Q1HR [facility] Rx#:[id number] Sodium Chloride 0.9% 1, 160 000 ml @ 20 mls/hr IV . Q24H [facility] Rx#:[id number] Vancomycin 1,250 mg In 250 Sodium Chloride 0.9% 250 ml @ 125 mls/hr IVPB Q48H [facility] Rx#:[id number] Oral 680 120 Output: Urine 1600 850 400 Uretheral (Fox) 600 Other: Voiding Method Indwelling Catheter Toilet Toilet Bedpan # Voids 1 1 - Exam Head exam was generally normal. There was no scleral icterus or corneal arcus. Mucous membranes were moist. Neck is short and supple and there is significant crowding of the posterior oropharynx. There is no goiter or neck masses. Lungs sounds are diminished bilaterally along with some scattered expiratory wheezes and some prolongation of expiratory phase of breathing. Overall bronchospasm wheezing is improved compared to yesterday. Heart sounds are regular, positive S1-S2, no significant murmurs appreciated.Abdominal exam revealed normal bowel sounds. The abdomen was soft, non-tender, and without masses, organomegaly, or appreciable enlargement of the abdominal aorta.Examination of the extremities revealed easily palpable radial, femoral and pedal pulses. There was no cyanosis, clubbing or edema. - Labs CBC & Chem 7: 11/18/16 05:26 11/18/16 05:26 Labs: Abnormal Lab Results - Last 24 Hours (Table) 11/17/16 11/17/16 11/18/16 Range/Units 16:16 19:50 05:26 Potassium 2.9 L* (3.5-5.1) mmol/L Chloride 87 L (98-107) mmol/L Carbon Dioxide 43 H* (22-30) mmol/L BUN 42 H (7-17) mg/dL Creatinine 1.15 H (0.52-1.04) mg/dL Glucose 168 H (74-99) mg/dL POC Glucose (mg/dL) 277 H 256 H (75-99) mg/dL Calcium 8.3 L (8.4-10.2) mg/dL 11/18/16 11/18/16 Range/Units 05:38 11:30 Potassium (3.5-5.1) mmol/L Chloride (98-107) mmol/L Carbon Dioxide (22-30) mmol/L BUN (7-17) mg/dL Creatinine (0.52-1.04) mg/dL Glucose (74-99) mg/dL POC Glucose (mg/dL) 195 H 154 H (75-99) mg/dL Calcium (8.4-10.2) mg/dL Microbiology - Last 24 Hours (Table) 11/15/16 08:02 Blood Culture - Preliminary Blood No Growth after 72 hours 11/15/16 09:21 Blood Culture - Preliminary Blood No Growth after 72 hours 11/15/16 13:00 Gram Stain - Preliminary Sputum Sputum Culture - Final Assessment and Plan Plan: Assessment 1 acute left lung pneumonia involving the lingula in the left lower lobe segment. There is also some atelectatic changes in the right midlung. Rule out pneumonia with mucous plugging secondary atelectasis. Rule out infection with MRSA or pseudomonas nontender the patient has been colonized and infected by these microorganisms in the past. 2 acute on top of chronic hypoxic respiratory failure 3 acute COPD exacerbation with BiPAP dependent respiratory failure 4 obesity 5 coronary artery disease 6 CHF with diastolic dysfunction secondary pulmonary hypertension with a PA pressure of around 45 7 shingles, treated with acyclovir 8 fall with back pain and compression fractures 9 osteoporosis 10 diverticular disease 11 medical debility seconds above-mentioned comorbidities 12 paroxysmal atrial fibrillation and currently rhythm is sinus 13. pre Renal azotemia Plan Replace potassium. Continue bronchodilators. Continue steroids. Chest x-ray was reviewed. No acute abnormalities. Clinically improving. We'll follow.
[2016-11-18 16:46] LABS: Glucose,Whole Blood 212 mg/dL (75-99)
[2016-11-18] MEDS: POTASSIUM CHLORIDE ER 20 MEQ TAB.ER PO SCH ×3 (17:22→20:35)
[2016-11-18 21:07] LABS: Glucose,Whole Blood 282 mg/dL (75-99)
[2016-11-19] MEDS: HYDROmorphone 1 MG/ML 1 ML SYRINGE IVP PRN ×3 (00:03→23:38)
[2016-11-19 05:46] LABS: Glucose,Whole Blood 159 mg/dL (75-99)
[2016-11-19] MEDS: INSULIN LISPRO (humaLOG) 300 UNIT/3 ML VIAL SQ SCH ×4 (06:25→21:45)
[2016-11-19] MEDS: methylPREDNISolone SOD SUCCI 125 MG/2 ML VIAL IV SCH ×4 (06:25→23:15)
[2016-11-19 06:39] LABS: CH 27.4; CHCM 31.5; HCT 29.3 % (34.0-46.0); HDW 2.57; HGB 9.2 gm/dL (11.4-16.0); Hypochromasia Slight; MCH 27.4 pg (25.0-35.0); MCHC 31.4 g/dL (31.0-37.0); MCV 87.3 fL (80.0-100.0); Mean Platelet Volume 6.7; RBC 3.35 m/uL (3.80-5.40); RDW 14.9 % (11.5-15.5); WBC 14.4 k/uL (3.8-10.6)
[2016-11-19 06:55] LABS: Blood Urea Nitrogen 44 mg/dL (7-17); Calcium 8.5 mg/dL (8.4-10.2); Chloride 88 mmol/L (98-107); Glucose 127 mg/dL (74-99); Non-African American GFR(MDRD) 53 (>60 ml/min/1.73 sqM); Potassium 4.2 mmol/L (3.5-5.1); Sodium 138 mmol/L (137-145)
[2016-11-19 07:07] LABS: Anion Gap 5 mmol/L; Carbon Dioxide 45 mmol/L (22-30)
[2016-11-19] MEDS: PIPERACILLIN-TAZOBACTAM 3.375 GM in DEXTROSE/WATER 1 50ML.BAG IVPB SCH ×3 (08:41→23:15)
[2016-11-19] MEDS: AZITHROMYCIN 500 MG in SODIUM CHLORIDE 0.9% 250 ML IVPB SCH (08:41)
[2016-11-19] MEDS: APIXABAN 2.5 MG TABLET PO SCH ×2 (08:45→20:57)
[2016-11-19] MEDS: ASPIRIN 81 MG CHEW PO SCH (08:45)
[2016-11-19] MEDS: METOPROLOL TARTRATE 25 MG TAB PO SCH ×2 (08:45→20:57)
[2016-11-19] MEDS: FUROSEMIDE 20 MG TAB PO SCH (08:45)
[2016-11-19] MEDS: POTASSIUM CHLORIDE ER 10 MEQ TAB.ER.PRT PO SCH ×2 (08:45→20:57)
[2016-11-19] MEDS: VERAPAMIL 40 MG TAB PO SCH ×3 (08:45→20:57)
[2016-11-19] MEDS: IPRATROPIUM-ALBUTEROL 3 ML NEB INHALATION SCH ×4 (09:00→19:56)
[2016-11-19] MEDS ORDERED: VANCOMYCIN 1,250 MG in SODIUM CHLORIDE 0.9% 250 ML IVPB SCH (09:30)
[2016-11-19] MEDS: SODIUM CHLORIDE 0.9% 1,000 ML IV SCH (09:54)
--- NOTE | 2016-11-19 10:56 | CDI ---
In responding to this query, please exercise your independent professional judgment. The [facility] Coding Staff and Clinical Documentation Specialists appreciate your assistance in clarifying documentation, maintaining compliance with coding guidelines, accurately documenting patients condition and capturing severity of illness. The fact that a question is asked does not imply that any particular answer is desired or expected. Communication forms are a method of clarifying documentation and are not made part of the Legal Health Record. Thank you in advance for your clarification. Last Revision, June 2015 Ronaldo Waters [address] [place] [address] Documentation Clarification Form Date: 11/19/2016 10:33:00 AM From: Cristal Lentz Admit Date: 11/15/2016 8:16:00 AM Patient Name: Annette Phillips Visit Number: [id number] Discharge Date: Dr. Mason Hays/Sonny Leonard PA-C Patient has been diagnosed with a compression fracture in the Lumbar spine. History/Risk Factors: Osteoporosis, COPD, [place], Osteoarthritis, Former smoker, Hypertension Clinical Indications: She notes pain in the center of the back in the lumbar region. She states there is no significant traumatic event, she states that shw was walking and felt like the back gave out in that region. (per ortho consult) Lumbar spine X-Ray: Osteopenia. There are mild compression fracture of L1 and L2 of uncertain age. There is probably a degenerative first -degree L4-5, S1 Spondyloisthesis. Treatment: Lumbar corset brace Walker with ambulation Dilaudid IV PRN In your professional opinion, please specify the following: Etiology of fracture: Traumatic Pathological (specify cause): Other (please specify) Unable to determine Episode of care: Initial or Subsequent with delayed healing Subsequent with malunion Subsequent with nonunion Sequela Also, indicate any associated diagnosis/conditions related to the Fracture in your documentation. Please document in your progress notes in order to capture severity of illness and risk of mortality. Include clinical findings that support your diagnosis. FYI: Press F11 to launch patient chart MTDD
--- NOTE | 2016-11-19 11:15 | PN ---
Mrs. Phillips is admitted with pneumonia and exacerbation of asthma. The patient has underlying COPD. The patient also has paroxysmal atrial fibrillation. She is also being treated for shingles. She is on steroids and antibiotics and small dose of Lasix for diastolic CHF. She is sitting up in a chair and seems to be feeling better. She denies any chest pain or shortness of breath. From a cardiac standpoint, the patient seems to be stable. PHYSICAL EXAMINATION: Reveals an elderly female who is alert and oriented. Does not appear to be in any acute distress. Lungs appear to show some breath sounds, some wheezing which is expiratory. There is some diminished breath sounds at the bases. Heart: Distant heart sounds. No significant murmurs heard. Abdomen is soft. Extremities: Mild edema. Lab values showed: Potassium 2.9 which is being corrected. I also put her on oral potassium supplements with the creatinine 1.5, BUN 42. She is currently on Apixaban, aspirin, Azithromycin, Lasix 20 mg daily, Insulin , methyl prednisolone, Metoprolol. FINAL IMPRESSION: 1. Pneumonia. 2. Exacerbation of chronic obstructive pulmonary disease. 3. Diastolic congestive heart failure. 4. Shingles. PLAN: Continue current medical therapy. Follow electrolytes closely. Replace potassium. MTDD
[2016-11-19 11:35] LABS: Glucose,Whole Blood 223 mg/dL (75-99)
[2016-11-19] MEDS: VANCOMYCIN 1,250 MG in SODIUM CHLORIDE 0.9% 250 ML IVPB SCH (12:13)
--- NOTE | 2016-11-19 12:14 | PN ---
SUBJECTIVE: This is an 86 -year-old white female who had CO2 of 44 today. Sitting up in the chair. States she is breathing better. She has sleep apnea, acute hypoxemic respiratory failure, CHF, acute diastolic A. fib with rapid ventricular response, COPD exacerbation, right lower lobe pneumonia. She continues to take broad spectrum antibiotics, steroids, rate control, medications for A. fib with rapid ventricular response. Cardiovascular irregular irregularly rhythm. Psych: Fair mood and affect. Neurological: Alert and oriented times three. IMPRESSION: 1. Acute hypoxic respiratory failure. 2. Acute diastolic congestive heart failure. 3. Atrial fibrillation with rapid ventricular response. 4. Obstructive sleep apnea. 5. Chronic obstructive pulmonary disease exacerbation. 6. Pneumonia, bilaterally. Continue current treatment. IV steroid updrafts. Antibiotics. Rate control. Prognosis guarded but it is improving. MTDD
--- NOTE | 2016-11-19 12:52 | P.PN ---
Subjective A pleasant 85-year-old female patient, known history of COPD, known history of chronic hypoxic respiratory failure, who got transferred to our hospital because of worsening shortness of breath. The patient has been followed up by our service and she had been seen at the [place] office. The patient had a fall approximately 3 weeks ago and she sustained significant injury to her lower back. At that point she had been seen in [facility] and further x-rays at shown compression fractures in her lumbar spine. She was unable to ambulate and be independent and based on that she was taken to [facility] medical facility where she had been staying for the past 3 weeks. The patient during her stay developed shingles over the right posterior chest area and she was started on acyclovir around November 01. The patient subsequently started having increased shortness of breath. She started having increased cough chest congestion and chest tightness and wheezing. Has COPD exacerbated. Denies having any fever or chills. She got transferred to our hospital and the chest x-ray showing left lower lobe and lingular infiltrate in addition to an atelectatic band and the right midlung area. She is producing copious amount of purulent respiratory secretions. She was placed on BiPAP for respiratory support at a pressure of 12/5 cm of water with an FiO2 of 40%. Currently she is on oxygen by nasal cannula. No change in mental status. Family is at the bedside. No reported aspiration. 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 In fact, the previous sputum analysis at that was done in December 2015 showed multiple pseudomonas and MRSA elements. Her troponins are minimally elevated at 0.03 and her proBNP level is 3350. On 11/16/16 the patient is being seen in follow-up. The patient is less short of breath compared to yesterday. The sputum was sent for Gram stain and culture. The patient is not having any chest pain. No fever or chills. Overnight she was awaiting the BiPAP at a pressure of 12/5 cm of water. Currently is on normal BiPAP and she is on high flow oxygen 10 L/m nasal cannula. No nausea. No vomiting no change in mental status. Note that she has been covered with broad-spectrum antibiotics pH has been infected with pseudomonas and MRSA in the past and for that reason the patient was placed on a combination of Zosyn, Zithromax and vancomycin. X-ray of the lumbar spine was done and showed osteopenia. There is decompression of the superior endplate of L2 and order of 15%. She has been also noted to have paroxysmal atrial fibrillation. She had short runs of PAT. Her current rhythm is sinus with PAC. The patient is on anticoagulation per cardiology's recommendation. No Cardizem drip. On 11/17/2016, the patient is being seen in follow-up. The patient is doing well. No specific complaints. Still using the BiPAP overnight at a pressure of 12/5 cm of water. Cough and chest congestion is improved. No fever. No chills. No night sweats. The patient is in sinus rhythm. She has developed a mild component of prerenal azotemia and for that reason she was placed on oral Lasix 20 mg by mouth daily. She is also on oral anticoagulants. He remains on IV Solu-Medrol. No nausea. No vomiting. No diarrhea. No change in mental status. No other complaints On 11/18/2016 I'm seeing the patient in follow-up. She is doing well. No specific complaints otherwise for now. The chest x-ray showed a stable finding with chronic senescent changes and hyperinflation consistent with COPD. No fever. No chills. No night sweats. Sputum cultures had not yielded into anything that's positive. The patient's potassium level is at 2.9 is to be replaced. Creatinine is stable at 1.1. The patient on oral Lasix. The patient is also on bronchodilators systemic steroids and broad-spectrum antibiotics. On 11/19/2016, the patient is being seen in follow-up. No new complaints pH is sitting up on a chair. She is still using the BiPAP overnight for respiratory support. Remains on broad-spectrum antibiotics. Sputum cultures have not resulted in to positive cultures or microbial growth. The patient be kept on the nebulized treatments. The patient be kept on the steroids. She is improving however her improvement is rather slow he had she's been placed on oral Lasix. Renal function is stable for now. Objective - Vital Signs Vital signs: Vital Signs Temp 98.5 F 11/19/16 08:00 Pulse 82 11/19/16 12:13 Resp 16 11/19/16 08:00 BP 132/60 11/19/16 08:00 Pulse Ox 94 L 07/24/17 09:01 Intake & Output 11/18/16 11/19/16 11/19/16 18:59 06:59 18:59 Intake Total 1280 640 Output Total 900 400 700 Balance 380 -400 -60 Weight 73.1 kg Intake: Intake, IV Titration 800 460 Amount Azithromycin 500 mg In 250 250 Sodium Chloride 0.9% 250 ml @ 125 mls/hr IVPB DAILY [facility] Rx#:[id number] Piperacillin-Tazobactam 3 100 50 .375 gm In Dextrose/Water 1 50ml.bag @ 12.5 mls/hr IVPB Q8HR [facility] Rx#: [id number] Potassium Chloride 10 meq 200 Lidocaine 2% Inj 10 mg In Sodium Chloride 0.9% 100 ml @ 100 mls/hr IV Q1HR [facility] Rx#:[id number] Sodium Chloride 0.9% 1, 160 000 ml @ 20 mls/hr IV . Q24H [facility] Rx#:[id number] Vancomycin 1,250 mg In 250 Sodium Chloride 0.9% 250 ml @ 125 mls/hr IVPB Q48H [facility] Rx#:[id number] Oral 480 180 Output: Urine 900 400 700 Other: Voiding Method Toilet Toilet # Voids 1 # Bowel Movements 1 - Exam Head exam was generally normal. There was no scleral icterus or corneal arcus. Mucous membranes were moist. Neck is short and supple and there is significant crowding of the posterior oropharynx. There is no goiter or neck masses. Lungs sounds are diminished bilaterally along with some scattered expiratory wheezes and some prolongation of expiratory phase of breathing. Overall bronchospasm wheezing is improved compared to yesterday. Heart sounds are regular, positive S1-S2, no significant murmurs appreciated.Abdominal exam revealed normal bowel sounds. The abdomen was soft, non-tender, and without masses, organomegaly, or appreciable enlargement of the abdominal aorta.Examination of the extremities revealed easily palpable radial, femoral and pedal pulses. There was no cyanosis, clubbing or edema. - Labs CBC & Chem 7: 11/19/16 05:54 11/19/16 05:54 Labs: Abnormal Lab Results - Last 24 Hours (Table) 11/18/16 11/18/16 11/18/16 Range/Units 16:01 16:40 21:05 WBC (3.8-10.6) k/uL RBC (3.80-5.40) m/uL Hgb (11.4-16.0) gm/dL Hct (34.0-46.0) % Potassium 2.9 L* (3.5-5.1) mmol/L Chloride (98-107) mmol/L Carbon Dioxide (22-30) mmol/L BUN (7-17) mg/dL Glucose (74-99) mg/dL POC Glucose (mg/dL) 212 H 282 H (75-99) mg/dL 11/19/16 11/19/16 11/19/16 Range/Units 05:44 05:54 05:54 WBC 14.4 H (3.8-10.6) k/uL RBC 3.35 L (3.80-5.40) m/uL Hgb 9.2 L (11.4-16.0) gm/dL Hct 29.3 L (34.0-46.0) % Potassium (3.5-5.1) mmol/L Chloride 88 L (98-107) mmol/L Carbon Dioxide 45 H* (22-30) mmol/L BUN 44 H (7-17) mg/dL Glucose 127 H (74-99) mg/dL POC Glucose (mg/dL) 159 H (75-99) mg/dL 11/19/16 Range/Units 11:34 WBC (3.8-10.6) k/uL RBC (3.80-5.40) m/uL Hgb (11.4-16.0) gm/dL Hct (34.0-46.0) % Potassium (3.5-5.1) mmol/L Chloride (98-107) mmol/L Carbon Dioxide (22-30) mmol/L BUN (7-17) mg/dL Glucose (74-99) mg/dL POC Glucose (mg/dL) 223 H (75-99) mg/dL Microbiology - Last 24 Hours (Table) 11/15/16 08:02 Blood Culture - Preliminary Blood No Growth after 96 hours 11/15/16 09:21 Blood Culture - Preliminary Blood No Growth after 96 hours Assessment and Plan Plan: Assessment 1 acute left lung pneumonia involving the lingula in the left lower lobe segment. There is also some atelectatic changes in the right midlung. Rule out pneumonia with mucous plugging secondary atelectasis. Rule out infection with MRSA or pseudomonas nontender the patient has been colonized and infected by these microorganisms in the past. The repeat sputum cultures from this current hospitalization shows no microbial growth. 2 acute on top of chronic hypoxic respiratory failure, improving slowly 3 acute COPD exacerbation with BiPAP dependent respiratory failure, improving slowly 4 obesity 5 coronary artery disease 6 CHF with diastolic dysfunction secondary pulmonary hypertension with a PA pressure of around 45 7 shingles, treated with acyclovir 8 fall with back pain and compression fractures 9 osteoporosis 10 diverticular disease 11 medical debility seconds above-mentioned comorbidities 12 paroxysmal atrial fibrillation and currently rhythm is sinus 13. pre Renal azotemia Plan Repeat chest x-ray in the morning. Continue same antibiotic coverage which included a combination of Zosyn and vancomycin and Zithromax. Continue IV Solu Medrol for another 24 hours and start tapering as of tomorrow. Rest of the medication will be unchanged including the oral Lasix 20 mg by mouth daily. Renal function is stable. No Hypokalemia. We'll continue to follow.
--- NOTE | 2016-11-19 14:57 | P.PN ---
Subjective This is a pleasant 86-year-old female with a history of smoking, COPD, osteoporosis, diverticulitis, prior cholecystectomy, and some type of irregular heart rate but has not been on any medications. She presented to [facility] with complaints of low back pain about a week ago and was found to have a compression fracture that was addressed at that time and was also told that she may have some pneumonia. She presented again to [facility] with complaints of increasing shortness of breath, fatigue, lack of energy and was found to have possible pneumonia or bronchitis. She was in the hospital she complained of chest discomfort and developed some atrial fibrillation and therefore was transferred here. Her BNP was found to be 3350, she is on Lasix 40 mg by mouth daily at home. She is currently being treated for pneumonia and receiving IV antibiotics. She is on PO Lasix Echocardiogram with Doppler study was performed which revealed an ejection fraction of 55-60 %. Objective - Vital Signs Vital signs: Vital Signs Temp 98.5 F 11/19/16 08:00 Pulse 82 11/19/16 12:13 Resp 16 11/19/16 12:00 BP 139/62 11/19/16 12:00 Pulse Ox 98 11/19/16 12:00 Intake & Output 11/18/16 11/19/16 11/19/16 18:59 06:59 18:59 Intake Total 1280 876 Output Total 900 400 700 Balance 380 -400 176 Weight 73.1 kg Intake: Intake, IV Titration 800 460 Amount Azithromycin 500 mg In 250 250 Sodium Chloride 0.9% 250 ml @ 125 mls/hr IVPB DAILY [facility] Rx#:[id number] Piperacillin-Tazobactam 3 100 50 .375 gm In Dextrose/Water 1 50ml.bag @ 12.5 mls/hr IVPB Q8HR [facility] Rx#: [id number] Potassium Chloride 10 meq 200 Lidocaine 2% Inj 10 mg In Sodium Chloride 0.9% 100 ml @ 100 mls/hr IV Q1HR [facility] Rx#:[id number] Sodium Chloride 0.9% 1, 160 000 ml @ 20 mls/hr IV . Q24H [facility] Rx#:[id number] Vancomycin 1,250 mg In 250 Sodium Chloride 0.9% 250 ml @ 125 mls/hr IVPB Q48H [facility] Rx#:[id number] Oral 480 416 Output: Urine 900 400 700 Other: Voiding Method Toilet Toilet # Voids 1 # Bowel Movements 1 - Exam PHYSICAL EXAMINATION: HEENT: Head is atraumatic, normocephalic. Pupils equal, round. Neck is supple. There is no elevated jugular venous pressure. HEART EXAMINATION: Heart sounds regular, S1 and S2 normal with a systolic murmur. CHEST EXAMINATION: Lungs reveal scattered wheezing anteriorly with fine crackles to the bases posteriorly ABDOMEN: Soft, nontender. Bowel sounds are heard. No organomegaly noted. EXTREMITIES: Diminished peripheral pulses with evidence of 1+ peripheral edema and no calf tenderness noted. NEUROLOGIC patient is awake, alert and oriented x3. . - Labs CBC & Chem 7: 11/19/16 05:54 11/19/16 05:54 Labs: Abnormal Lab Results - Last 24 Hours (Table) 11/18/16 11/18/16 11/18/16 Range/Units 16:01 16:40 21:05 WBC (3.8-10.6) k/uL RBC (3.80-5.40) m/uL Hgb (11.4-16.0) gm/dL Hct (34.0-46.0) % Potassium 2.9 L* (3.5-5.1) mmol/L Chloride (98-107) mmol/L Carbon Dioxide (22-30) mmol/L BUN (7-17) mg/dL Glucose (74-99) mg/dL POC Glucose (mg/dL) 212 H 282 H (75-99) mg/dL 11/19/16 11/19/16 11/19/16 Range/Units 05:44 05:54 05:54 WBC 14.4 H (3.8-10.6) k/uL RBC 3.35 L (3.80-5.40) m/uL Hgb 9.2 L (11.4-16.0) gm/dL Hct 29.3 L (34.0-46.0) % Potassium (3.5-5.1) mmol/L Chloride 88 L (98-107) mmol/L Carbon Dioxide 45 H* (22-30) mmol/L BUN 44 H (7-17) mg/dL Glucose 127 H (74-99) mg/dL POC Glucose (mg/dL) 159 H (75-99) mg/dL 11/19/16 Range/Units 11:34 WBC (3.8-10.6) k/uL RBC (3.80-5.40) m/uL Hgb (11.4-16.0) gm/dL Hct (34.0-46.0) % Potassium (3.5-5.1) mmol/L Chloride (98-107) mmol/L Carbon Dioxide (22-30) mmol/L BUN (7-17) mg/dL Glucose (74-99) mg/dL POC Glucose (mg/dL) 223 H (75-99) mg/dL Microbiology - Last 24 Hours (Table) 11/15/16 08:02 Blood Culture - Preliminary Blood No Growth after 96 hours 11/15/16 09:21 Blood Culture - Preliminary Blood No Growth after 96 hours Assessment and Plan Plan: Assessment and plan #1 symptoms of progressively worsening shortness of breath and cough, probable pneumonia with underlying COPD as well as an aspect of mild diastolic heart failure #2 paroxysmal atrial fibrillation #3 smoking history #4 hypertension Cardiology's perspective we will recommend to continue the patient on her current medications. We will follow this patient with you now on an as-needed basis only, please don't hesitate to call with any questions. Follow-up appointment will be made post discharge.
[2016-11-19 17:27] LABS: Glucose,Whole Blood 213 mg/dL (75-99)
[2016-11-19 21:41] LABS: Glucose,Whole Blood 248 mg/dL (75-99)
[2016-11-20] MEDS: HYDROmorphone 1 MG/ML 1 ML SYRINGE IVP PRN ×4 (04:50→23:45)
[2016-11-20] MEDS: methylPREDNISolone SOD SUCCI 125 MG/2 ML VIAL IV SCH ×2 (06:21→12:12)
[2016-11-20 07:31] LABS: Glucose,Whole Blood 209 mg/dL (75-99)
[2016-11-20] MEDS: APIXABAN 2.5 MG TABLET PO SCH ×2 (07:49→21:06)
[2016-11-20] MEDS: INSULIN LISPRO (humaLOG) 300 UNIT/3 ML VIAL SQ SCH ×4 (07:49→21:10)
[2016-11-20] MEDS: POTASSIUM CHLORIDE ER 10 MEQ TAB.ER.PRT PO SCH ×2 (07:49→21:07)
[2016-11-20] MEDS: ASPIRIN 81 MG CHEW PO SCH (07:49)
[2016-11-20] MEDS: AZITHROMYCIN 500 MG TAB PO SCH (07:49)
[2016-11-20] MEDS: FUROSEMIDE 20 MG TAB PO SCH (07:49)
[2016-11-20] MEDS: METOPROLOL TARTRATE 25 MG TAB PO SCH ×2 (07:49→21:06)
[2016-11-20] MEDS: VERAPAMIL 40 MG TAB PO SCH ×3 (07:49→21:07)
[2016-11-20] MEDS: PIPERACILLIN-TAZOBACTAM 3.375 GM in DEXTROSE/WATER 1 50ML.BAG IVPB SCH ×3 (07:57→23:45)
[2016-11-20] MEDS: IPRATROPIUM-ALBUTEROL 3 ML NEB INHALATION SCH ×4 (08:18→19:37)
[2016-11-20] MEDS: SODIUM CHLORIDE 0.9% 1,000 ML IV SCH (09:31)
[2016-11-20] MEDS ORDERED: VANCOMYCIN TROUGH DUE 1 EACH MISC MISCELLANE ONE (11:00)
[2016-11-20 12:01] LABS: Calcium 8.5 mg/dL (8.4-10.2); Potassium 3.1 mmol/L (3.5-5.1)
[2016-11-20 12:02] LABS: Glucose,Whole Blood 185 mg/dL (75-99)
[2016-11-20] MEDS: VANCOMYCIN 1,250 MG in SODIUM CHLORIDE 0.9% 250 ML IVPB SCH (12:22)
--- NOTE | 2016-11-20 12:47 | PN ---
SUBJECTIVE: An 86-year-old white female, status post COPD exacerbation, bilateral pneumonia, atrial fibrillation, chest pain, congestive heart failure. Breathing is improving. No chest pain, no syncope, no nausea, vomiting. CARDIOVASCULAR: S1, S2. LUNGS: Scattered wheeze and rhonchi, HEMATOLOGIC: Negative Homans. PSYCH: Fair mood and affect. ASSESSMENT: 1. Acute chronic obstructive pulmonary disease exacerbation. 2. Congestive heart failure. 3. Chest pain and atrial fibrillation with rapid ventricular response. 4. Pneumonia. PLAN: Continue with IV antibiotics, steroid tapering, updraft treatment, IV Lasix. Possible discharge in the next 24 to 48 hours. The patient is greatly improving. MTDD
[2016-11-20 16:59] LABS: Glucose,Whole Blood 216 mg/dL (75-99)
--- NOTE | 2016-11-20 17:07 | P.PN ---
Subjective A pleasant 85-year-old female patient, known history of COPD, known history of chronic hypoxic respiratory failure, who got transferred to our hospital because of worsening shortness of breath. The patient has been followed up by our service and she had been seen at the [place]'s office. The patient had a fall approximately 3 weeks ago and she sustained significant injury to her lower back. At that point she had been seen in [facility] and further x-rays at shown compression fractures in her lumbar spine. She was unable to ambulate and be independent and based on that she was taken to [facility] medical facility where she had been staying for the past 3 weeks. The patient during her stay developed shingles over the right posterior chest area and she was started on acyclovir around November 01. The patient subsequently started having increased shortness of breath. She started having increased cough chest congestion and chest tightness and wheezing. Has COPD exacerbated. Denies having any fever or chills. She got transferred to our hospital and the chest x-ray showing left lower lobe and lingular infiltrate in addition to an atelectatic band and the right midlung area. She is producing copious amount of purulent respiratory secretions. She was placed on BiPAP for respiratory support at a pressure of 12/5 cm of water with an FiO2 of 40%. Currently she is on oxygen by nasal cannula. No change in mental status. Family is at the bedside. No reported aspiration. 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 In fact, the previous sputum analysis at that was done in December 2015 showed multiple pseudomonas and MRSA elements. Her troponins are minimally elevated at 0.03 and her proBNP level is 3350. On 11/16/16 the patient is being seen in follow-up. The patient is less short of breath compared to yesterday. The sputum was sent for Gram stain and culture. The patient is not having any chest pain. No fever or chills. Overnight she was awaiting the BiPAP at a pressure of 12/5 cm of water. Currently is on normal BiPAP and she is on high flow oxygen 10 L/m nasal cannula. No nausea. No vomiting no change in mental status. Note that she has been covered with broad-spectrum antibiotics pH has been infected with pseudomonas and MRSA in the past and for that reason the patient was placed on a combination of Zosyn, Zithromax and vancomycin. X-ray of the lumbar spine was done and showed osteopenia. There is decompression of the superior endplate of L2 and order of 15%. She has been also noted to have paroxysmal atrial fibrillation. She had short runs of PAT. Her current rhythm is sinus with PAC. The patient is on anticoagulation per cardiology's recommendation. No Cardizem drip. On 11/17/2016, the patient is being seen in follow-up. The patient is doing well. No specific complaints. Still using the BiPAP overnight at a pressure of 12/5 cm of water. Cough and chest congestion is improved. No fever. No chills. No night sweats. The patient is in sinus rhythm. She has developed a mild component of prerenal azotemia and for that reason she was placed on oral Lasix 20 mg by mouth daily. She is also on oral anticoagulants. He remains on IV Solu-Medrol. No nausea. No vomiting. No diarrhea. No change in mental status. No other complaints On 11/18/2016 I'm seeing the patient in follow-up. She is doing well. No specific complaints otherwise for now. The chest x-ray showed a stable finding with chronic senescent changes and hyperinflation consistent with COPD. No fever. No chills. No night sweats. Sputum cultures had not yielded into anything that's positive. The patient's potassium level is at 2.9 is to be replaced. Creatinine is stable at 1.1. The patient on oral Lasix. The patient is also on bronchodilators systemic steroids and broad-spectrum antibiotics. On 11/19/2016, the patient is being seen in follow-up. No new complaints pH is sitting up on a chair. She is still using the BiPAP overnight for respiratory support. Remains on broad-spectrum antibiotics. Sputum cultures have not resulted in to positive cultures or microbial growth. The patient be kept on the nebulized treatments. The patient be kept on the steroids. She is improving however her improvement is rather slow he had she's been placed on oral Lasix. Renal function is stable for now. The patient is seen again today 11/20/2016 in follow-up. She is currently sitting up at the bedside. She is awake and alert in no acute distress. She denies any worsening shortness of breath, cough or congestion. She is breathing easier today as compared to yesterday. Sputum culture reveals no growth. Blood cultures revealed no growth. She remains on bronchodilators, antibiotics in the form of azithromycin and Zosyn. She remains on IV Solu- Medrol. She is maintaining good O2 saturations in the mid 90s on 3 L/m per nasal cannula. Afebrile. Objective - Vital Signs Vital signs: Vital Signs Temp 97.6 F 11/20/16 15:00 Pulse 80 11/20/16 16:35 Resp 18 11/20/16 15:00 BP 123/55 11/20/16 15:00 Pulse Ox 94 L 11/20/16 15:00 Intake & Output 11/19/16 11/20/16 11/20/16 18:59 06:59 18:59 Intake Total 876 1025 Output Total 700 Balance 176 1025 Weight 73 kg Intake: Intake, IV Titration 460 Amount Azithromycin 500 mg In 250 Sodium Chloride 0.9% 250 ml @ 125 mls/hr IVPB DAILY [facility] Rx#:[id number] Piperacillin-Tazobactam 3 50 .375 gm In Dextrose/Water 1 50ml.bag @ 12.5 mls/hr IVPB Q8HR [facility] Rx#: [id number] Sodium Chloride 0.9% 1, 160 000 ml @ 20 mls/hr IV . Q24H [facility] Rx#:[id number] Oral 416 1025 Output: Urine 700 Other: Voiding Method Bedside Commode # Voids 2 2 1 # Bowel Movements 1 1 - Exam Head exam was generally normal. There was no scleral icterus or corneal arcus. Mucous membranes were moist. Neck is short and supple and there is significant crowding of the posterior oropharynx. There is no goiter or neck masses. Lungs sounds are diminished bilaterally along with some scattered expiratory wheezes and some prolongation of expiratory phase of breathing. Overall bronchospasm wheezing is improved compared to yesterday. Heart sounds are regular, positive S1-S2, no significant murmurs appreciated.Abdominal exam revealed normal bowel sounds. The abdomen was soft, non-tender, and without masses, organomegaly, or appreciable enlargement of the abdominal aorta.Examination of the extremities revealed easily palpable radial, femoral and pedal pulses. There was no cyanosis, clubbing or edema. - Labs CBC & Chem 7: 11/19/16 05:54 11/20/16 11:00 Labs: Abnormal Lab Results - Last 24 Hours (Table) 11/19/16 11/19/16 11/20/16 Range/Units 17:26 21:25 07:30 Potassium (3.5-5.1) mmol/L Chloride (98-107) mmol/L Carbon Dioxide (22-30) mmol/L BUN (7-17) mg/dL Creatinine (0.52-1.04) mg/dL Glucose (74-99) mg/dL POC Glucose (mg/dL) 213 H 248 H 209 H (75-99) mg/dL 11/20/16 11/20/16 11/20/16 Range/Units 11:00 11:58 16:58 Potassium 3.1 L (3.5-5.1) mmol/L Chloride 88 L (98-107) mmol/L Carbon Dioxide 40 H* (22-30) mmol/L BUN 40 H (7-17) mg/dL Creatinine 1.10 H (0.52-1.04) mg/dL Glucose 234 H (74-99) mg/dL POC Glucose (mg/dL) 185 H 216 H (75-99) mg/dL Microbiology - Last 24 Hours (Table) 11/15/16 08:02 Blood Culture - Preliminary Blood No Growth after 120 hours 11/15/16 09:21 Blood Culture - Preliminary Blood No Growth after 120 hours Assessment and Plan Plan: Assessment 1 acute left lung pneumonia involving the lingula in the left lower lobe segment. There is also some atelectatic changes in the right midlung. Rule out pneumonia with mucous plugging secondary atelectasis. Rule out infection with MRSA or pseudomonas nontender the patient has been colonized and infected by these microorganisms in the past. The repeat sputum cultures from this current hospitalization shows no microbial growth. 2 acute on top of chronic hypoxic respiratory failure, improving slowly 3 acute COPD exacerbation with BiPAP dependent respiratory failure, improving slowly 4 obesity 5 coronary artery disease 6 CHF with diastolic dysfunction secondary pulmonary hypertension with a PA pressure of around 45 7 shingles, treated with acyclovir 8 fall with back pain and compression fractures 9 osteoporosis 10 diverticular disease 11 medical debility seconds above-mentioned comorbidities 12 paroxysmal atrial fibrillation and currently rhythm is sinus 13. pre Renal azotemia Plan The patient was seen and evaluated by Dr. Dorman. She is improving. We'll continue with her current medications. We will initiate a prednisone taper. We 'll increase her activity as tolerated. We'll continue to follow.
[2016-11-20] MEDS: POTASSIUM CHLORIDE ER 20 MEQ TAB.ER PO SCH ×2 (18:31→21:06)
[2016-11-20 21:14] LABS: Glucose,Whole Blood 259 mg/dL (75-99)
[2016-11-21] MEDS ORDERED: Potassium Replacement Protocol 1 EACH MISC MISCELLANE PRN (00:02)
[2016-11-21] MEDS: POTASSIUM CHLORIDE ER 20 MEQ TAB.ER PO SCH ×2 (00:24→02:05)
[2016-11-21 03:57] LABS: Calcium 8.4 mg/dL (8.4-10.2); Potassium 3.9 mmol/L (3.5-5.1)
[2016-11-21] MEDS: HYDROmorphone 1 MG/ML 1 ML SYRINGE IVP PRN ×3 (05:23→23:07)
[2016-11-21] MEDS: VANCOMYCIN 1,250 MG in SODIUM CHLORIDE 0.9% 250 ML IVPB SCH ×2 (05:25→23:12)
[2016-11-21 07:32] LABS: Glucose,Whole Blood 93 mg/dL (75-99)
[2016-11-21] MEDS: IPRATROPIUM-ALBUTEROL 3 ML NEB INHALATION SCH ×4 (07:48→20:12)
[2016-11-21] MEDS: INSULIN LISPRO (humaLOG) 300 UNIT/3 ML VIAL SQ SCH ×4 (07:49→20:48)
[2016-11-21] MEDS: AZITHROMYCIN 500 MG TAB PO SCH (09:34)
[2016-11-21] MEDS: APIXABAN 2.5 MG TABLET PO SCH ×2 (09:35→20:48)
[2016-11-21] MEDS: METOPROLOL TARTRATE 25 MG TAB PO SCH ×2 (09:35→20:49)
[2016-11-21] MEDS: predniSONE 20 MG TAB PO SCH (09:35)
[2016-11-21] MEDS: POTASSIUM CHLORIDE ER 10 MEQ TAB.ER.PRT PO SCH ×2 (09:35→20:49)
[2016-11-21] MEDS: FUROSEMIDE 20 MG TAB PO SCH (09:35)
[2016-11-21] MEDS: VERAPAMIL 40 MG TAB PO SCH ×3 (09:35→20:49)
[2016-11-21] MEDS: ASPIRIN 81 MG CHEW PO SCH (09:36)
[2016-11-21] MEDS: SODIUM CHLORIDE 0.9% 1,000 ML IV SCH (09:36)
[2016-11-21] MEDS: PIPERACILLIN-TAZOBACTAM 3.375 GM in DEXTROSE/WATER 1 50ML.BAG IVPB SCH ×2 (09:39→16:03)
[2016-11-21 11:38] LABS: Glucose,Whole Blood 136 mg/dL (75-99)
--- NOTE | 2016-11-21 12:28 | PN ---
SUBJECTIVE: This is a white female with CHF, COPD, right lower lobe pneumonia, A. fib with rapid ventricular response who remains on triple antibiotics. She is up in a chair. Down to her normal 3 L of oxygen. CARDIOVASCULAR: S1, S2. LUNGS: Show scattered wheeze and rhonchi. HEMATOLOGY: Negative Homans. PSYCH: Fair mood affect. MUSCULOSKELETAL: Gait imbalance. ASSESSMENT: 1. Congestive heart failure. 2. Chronic obstructive pulmonary disease. 3. ( ). 4. Chest pain. 5. Atrial fibrillation with rapid ventricular response. 6. Right lower lobe pneumonia. Wean antibiotics. Continue updraft treatments. Possible discharge home in the next 24 to 48 hours. MTDD
--- NOTE | 2016-11-21 13:21 | P.PN ---
Subjective A pleasant 85-year-old female patient, known history of COPD, known history of chronic hypoxic respiratory failure, who got transferred to our hospital because of worsening shortness of breath. The patient has been followed up by our service and she had been seen at the [place]'s office. The patient had a fall approximately 3 weeks ago and she sustained significant injury to her lower back. At that point she had been seen in [facility] and further x-rays at shown compression fractures in her lumbar spine. She was unable to ambulate and be independent and based on that she was taken to [facility] medical facility where she had been staying for the past 3 weeks. The patient during her stay developed shingles over the right posterior chest area and she was started on acyclovir around November 01. The patient subsequently started having increased shortness of breath. She started having increased cough chest congestion and chest tightness and wheezing. Has COPD exacerbated. Denies having any fever or chills. She got transferred to our hospital and the chest x-ray showing left lower lobe and lingular infiltrate in addition to an atelectatic band and the right midlung area. She is producing copious amount of purulent respiratory secretions. She was placed on BiPAP for respiratory support at a pressure of 12/5 cm of water with an FiO2 of 40%. Currently she is on oxygen by nasal cannula. No change in mental status. Family is at the bedside. No reported aspiration. 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 In fact, the previous sputum analysis at that was done in December 2015 showed multiple pseudomonas and MRSA elements. Her troponins are minimally elevated at 0.03 and her proBNP level is 3350. On 11/16/16 the patient is being seen in follow-up. The patient is less short of breath compared to yesterday. The sputum was sent for Gram stain and culture. The patient is not having any chest pain. No fever or chills. Overnight she was awaiting the BiPAP at a pressure of 12/5 cm of water. Currently is on normal BiPAP and she is on high flow oxygen 10 L/m nasal cannula. No nausea. No vomiting no change in mental status. Note that she has been covered with broad-spectrum antibiotics pH has been infected with pseudomonas and MRSA in the past and for that reason the patient was placed on a combination of Zosyn, Zithromax and vancomycin. X-ray of the lumbar spine was done and showed osteopenia. There is decompression of the superior endplate of L2 and order of 15%. She has been also noted to have paroxysmal atrial fibrillation. She had short runs of PAT. Her current rhythm is sinus with PAC. The patient is on anticoagulation per cardiology's recommendation. No Cardizem drip. On 11/17/2016, the patient is being seen in follow-up. The patient is doing well. No specific complaints. Still using the BiPAP overnight at a pressure of 12/5 cm of water. Cough and chest congestion is improved. No fever. No chills. No night sweats. The patient is in sinus rhythm. She has developed a mild component of prerenal azotemia and for that reason she was placed on oral Lasix 20 mg by mouth daily. She is also on oral anticoagulants. He remains on IV Solu-Medrol. No nausea. No vomiting. No diarrhea. No change in mental status. No other complaints On 11/18/2016 I'm seeing the patient in follow-up. She is doing well. No specific complaints otherwise for now. The chest x-ray showed a stable finding with chronic senescent changes and hyperinflation consistent with COPD. No fever. No chills. No night sweats. Sputum cultures had not yielded into anything that's positive. The patient's potassium level is at 2.9 is to be replaced. Creatinine is stable at 1.1. The patient on oral Lasix. The patient is also on bronchodilators systemic steroids and broad-spectrum antibiotics. On 11/19/2016, the patient is being seen in follow-up. No new complaints pH is sitting up on a chair. She is still using the BiPAP overnight for respiratory support. Remains on broad-spectrum antibiotics. Sputum cultures have not resulted in to positive cultures or microbial growth. The patient be kept on the nebulized treatments. The patient be kept on the steroids. She is improving however her improvement is rather slow he had she's been placed on oral Lasix. Renal function is stable for now. The patient is seen again today 11/20/2016 in follow-up. She is currently sitting up at the bedside. She is awake and alert in no acute distress. She denies any worsening shortness of breath, cough or congestion. She is breathing easier today as compared to yesterday. Sputum culture reveals no growth. Blood cultures revealed no growth. She remains on bronchodilators, antibiotics in the form of azithromycin and Zosyn. She remains on IV Solu- Medrol. She is maintaining good O2 saturations in the mid 90s on 3 L/m per nasal cannula. Afebrile. The patient is seen again today 11/21/2016 in follow-up on the regular medical floor. She is awake and alert in no acute distress. She does continue with a loose nonproductive cough. She is maintaining good O2 saturations in the 90s on 3 L/m per nasal cannula. She has been slow to progress. We'll plan for bronchoscopy with BAL in the a.m. Objective - Vital Signs Vital signs: Vital Signs Temp 98 F 11/21/16 07:00 Pulse 76 11/21/16 11:13 Resp 19 11/21/16 08:00 BP 131/62 11/21/16 07:00 Pulse Ox 97 11/21/16 07:00 Intake & Output 11/20/16 11/21/16 11/21/16 18:59 06:59 18:59 Intake Total 400 Balance 400 Intake: Oral 400 Other: Voiding Method Bedside Commode Bedside Commode # Voids 1 1 # Bowel Movements 1 - Exam Head exam was generally normal. There was no scleral icterus or corneal arcus. Mucous membranes were moist. Neck is short and supple and there is significant crowding of the posterior oropharynx. There is no goiter or neck masses. Lungs sounds are diminished bilaterally along with some scattered expiratory wheezes and some prolongation of expiratory phase of breathing. Overall bronchospasm wheezing is improved compared to yesterday. Heart sounds are regular, positive S1-S2, no significant murmurs appreciated.Abdominal exam revealed normal bowel sounds. The abdomen was soft, non-tender, and without masses, organomegaly, or appreciable enlargement of the abdominal aorta.Examination of the extremities revealed easily palpable radial, femoral and pedal pulses. There was no cyanosis, clubbing or edema. - Labs CBC & Chem 7: 11/19/16 05:54 11/21/16 03:37 Labs: Abnormal Lab Results - Last 24 Hours (Table) 11/20/16 11/20/16 11/20/16 Range/Units 16:58 21:07 22:34 Potassium 3.1 L (3.5-5.1) mmol/L Chloride (98-107) mmol/L Carbon Dioxide (22-30) mmol/L BUN (7-17) mg/dL Creatinine (0.52-1.04) mg/dL Glucose (74-99) mg/dL POC Glucose (mg/dL) 216 H 259 H (75-99) mg/dL 11/21/16 11/21/16 Range/Units 03:37 11:35 Potassium (3.5-5.1) mmol/L Chloride 90 L (98-107) mmol/L Carbon Dioxide 44 H* (22-30) mmol/L BUN 39 H (7-17) mg/dL Creatinine 1.09 H (0.52-1.04) mg/dL Glucose 70 L (74-99) mg/dL POC Glucose (mg/dL) 136 H (75-99) mg/dL Microbiology - Last 24 Hours (Table) 11/15/16 08:02 Blood Culture - Final Blood No Growth after 144 hours 11/15/16 09:21 Blood Culture - Final Blood No Growth after 144 hours Assessment and Plan Plan: Assessment 1 acute left lung pneumonia involving the lingula in the left lower lobe segment. There is also some atelectatic changes in the right midlung. Rule out pneumonia with mucous plugging secondary atelectasis. Rule out infection with MRSA or pseudomonas nontender the patient has been colonized and infected by these microorganisms in the past. The repeat sputum cultures from this current hospitalization shows no microbial growth. We will plan for bronchoscopy with BAL in the a.m. 2 acute on top of chronic hypoxic respiratory failure, improving slowly 3 acute COPD exacerbation with BiPAP dependent respiratory failure, improving slowly 4 obesity 5 coronary artery disease 6 CHF with diastolic dysfunction secondary pulmonary hypertension with a PA pressure of around 45 7 shingles, treated with acyclovir 8 fall with back pain and compression fractures 9 osteoporosis 10 diverticular disease 11 medical debility seconds above-mentioned comorbidities 12 paroxysmal atrial fibrillation and currently rhythm is sinus 13 pre Renal azotemia Plan The patient was seen and evaluated by Dr. Dorman. She is slow to improve. We will go ahead and plan for bronchoscopy with BAL in the a.m. We'll continue with her current medications. We'll continue to follow.
[2016-11-21 17:36] LABS: Glucose,Whole Blood 264 mg/dL (75-99)
[2016-11-21 20:41] LABS: Glucose,Whole Blood 192 mg/dL (75-99)
[2016-11-22] MEDS: PIPERACILLIN-TAZOBACTAM 3.375 GM in DEXTROSE/WATER 1 50ML.BAG IVPB SCH ×4 (00:42→23:36)
[2016-11-22] MEDS: LACTATED RINGERS 1,000 ML IV SCH (06:18)
[2016-11-22 07:39] LABS: Glucose,Whole Blood 89 mg/dL (75-99)
[2016-11-22] MEDS: IPRATROPIUM-ALBUTEROL 3 ML NEB INHALATION SCH ×4 (07:43→20:57)
[2016-11-22] MEDS: HYDROmorphone 1 MG/ML 1 ML SYRINGE IVP PRN ×2 (07:44→18:58)
[2016-11-22] MEDS: METOPROLOL TARTRATE 25 MG TAB PO SCH ×2 (07:46→22:01)
[2016-11-22] MEDS: INSULIN LISPRO (humaLOG) 300 UNIT/3 ML VIAL SQ SCH ×4 (07:46→22:00)
[2016-11-22 08:25] LABS: Basophils # (A) 0.1 k/uL (0-0.2); Basophils % (A) 1 %; CH 27.3; CHCM 31.6; Eosinophils % (A) 0 %; HCT 28.6 % (34.0-46.0); HDW 2.58; HGB 9.2 gm/dL (11.4-16.0); Hypochromasia Slight; Luc # (Auto) 0.17; Luc % (Auto) 1; Lymphocytes # (A) 1.9 k/uL (1.0-4.8); Lymphocytes % (A) 15 %; MCHC 32.3 g/dL (31.0-37.0); MCV 86.8 fL (80.0-100.0); Mean Platelet Volume 6.7; Monocytes # (A) 0.5 k/uL (0-1.0); Monocytes % (A) 4 %; Neutrophils # (A) 9.8 k/uL (1.3-7.7); Neutrophils % (A) 79 %; RBC 3.29 m/uL (3.80-5.40); RDW 15.4 % (11.5-15.5); WBC 12.5 k/uL (3.8-10.6); WBC (Perox) 12.87
[2016-11-22 08:39] LABS: ALT 39 U/L (9-52); AST 17 U/L (14-36); Alkaline Phosphatase 58 U/L (38-126); Blood Urea Nitrogen 36 mg/dL (7-17); Calcium 8.1 mg/dL (8.4-10.2); Chloride 91 mmol/L (98-107); Glucose 76 mg/dL (74-99); Non-African American GFR(MDRD) 51 (>60 ml/min/1.73 sqM); Potassium 4.4 mmol/L (3.5-5.1); Sodium 134 mmol/L (137-145); Total Bilirubin 0.4 mg/dL (0.2-1.3); Total Protein 5.1 g/dL (6.3-8.2)
[2016-11-22 08:46] LABS: Anion Gap 2 mmol/L
[2016-11-22 08:51] LABS: Carbon Dioxide 41 mmol/L (22-30)
[2016-11-22] MEDS: SODIUM CHLORIDE 0.9% 1,000 ML IV SCH (09:56)
[2016-11-22 11:56] LABS: Glucose,Whole Blood 90 mg/dL (75-99)
--- NOTE | 2016-11-22 12:06 | PN ---
SUBJECTIVE: An 86-year-old white female with COPD exacerbation, chronic hypoxemic respiratory failure, infection of the lumbar spine. She is up sitting in the chair most of the day. She is awake, with better breathing. O2 sats on 3 L is at 90. She is awake, with better breathing, O2 sats on 3 L in the 90s. Bronchoscopy with BAL in the morning as she has had slow progress over the last few weeks. CARDIOVASCULAR: S1, S2. LUNGS: Scattered rhonchi and wheezing. HEMATOLOGIC: Negative Homans PSYCH: Fair mood and affect. Temp 98, pulse 76, respirations 18 and 20, blood pressure 130s/60s, O2 is 97% on room air. ASSESSMENT: 1. Acute lung pneumonia lingula, mucous plugging, possible methicillin- resistant Staphylococcus aureus pseudomonas, but she has slow improvement. Bronchoscopy with BAL in the morning. 2. Acute on chronic hypoxemic respiratory failure, slowing improving. 3. Acute chronic obstructive pulmonary disease exacerbation with BiPAP. 4. Slight improving ( ). 5. Coronary artery disease. 6. ( ) chest. 7. Shingles. 8. Compression fractures, osteoporosis, diverticular disease. 9. Comorbidities. 10. Paroxysmal atrial fibrillation. 11. ( ). Bronchoscopy and BAL. Continue with steroids, updrafts, IV antibiotics. Prognosis guarded. MTDD
--- NOTE | 2016-11-22 13:07 | P.PN ---
Subjective A pleasant 85-year-old female patient, known history of COPD, known history of chronic hypoxic respiratory failure, who got transferred to our hospital because of worsening shortness of breath. The patient has been followed up by our service and she had been seen at the [facility] office. The patient had a fall approximately 3 weeks ago and she sustained significant injury to her lower back. At that point she had been seen in [facility] and further x-rays at shown compression fractures in her lumbar spine. She was unable to ambulate and be independent and based on that she was taken to [facility] medical facility where she had been staying for the past 3 weeks. The patient during her stay developed shingles over the right posterior chest area and she was started on acyclovir around November 01. The patient subsequently started having increased shortness of breath. She started having increased cough chest congestion and chest tightness and wheezing. Has COPD exacerbated. Denies having any fever or chills. She got transferred to our hospital and the chest x-ray showing left lower lobe and lingular infiltrate in addition to an atelectatic band and the right midlung area. She is producing copious amount of purulent respiratory secretions. She was placed on BiPAP for respiratory support at a pressure of 12/5 cm of water with an FiO2 of 40%. Currently she is on oxygen by nasal cannula. No change in mental status. Family is at the bedside. No reported aspiration. 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 In fact, the previous sputum analysis at that was done in December 2015 showed multiple pseudomonas and MRSA elements. Her troponins are minimally elevated at 0.03 and her proBNP level is 3350. On 11/16/16 the patient is being seen in follow-up. The patient is less short of breath compared to yesterday. The sputum was sent for Gram stain and culture. The patient is not having any chest pain. No fever or chills. Overnight she was awaiting the BiPAP at a pressure of 12/5 cm of water. Currently is on normal BiPAP and she is on high flow oxygen 10 L/m nasal cannula. No nausea. No vomiting no change in mental status. Note that she has been covered with broad-spectrum antibiotics pH has been infected with pseudomonas and MRSA in the past and for that reason the patient was placed on a combination of Zosyn, Zithromax and vancomycin. X-ray of the lumbar spine was done and showed osteopenia. There is decompression of the superior endplate of L2 and order of 15%. She has been also noted to have paroxysmal atrial fibrillation. She had short runs of PAT. Her current rhythm is sinus with PAC. The patient is on anticoagulation per cardiology's recommendation. No Cardizem drip. On 11/17/2016, the patient is being seen in follow-up. The patient is doing well. No specific complaints. Still using the BiPAP overnight at a pressure of 12/5 cm of water. Cough and chest congestion is improved. No fever. No chills. No night sweats. The patient is in sinus rhythm. She has developed a mild component of prerenal azotemia and for that reason she was placed on oral Lasix 20 mg by mouth daily. She is also on oral anticoagulants. He remains on IV Solu-Medrol. No nausea. No vomiting. No diarrhea. No change in mental status. No other complaints On 11/18/2016 I'm seeing the patient in follow-up. She is doing well. No specific complaints otherwise for now. The chest x-ray showed a stable finding with chronic senescent changes and hyperinflation consistent with COPD. No fever. No chills. No night sweats. Sputum cultures had not yielded into anything that's positive. The patient's potassium level is at 2.9 is to be replaced. Creatinine is stable at 1.1. The patient on oral Lasix. The patient is also on bronchodilators systemic steroids and broad-spectrum antibiotics. On 11/19/2016, the patient is being seen in follow-up. No new complaints pH is sitting up on a chair. She is still using the BiPAP overnight for respiratory support. Remains on broad-spectrum antibiotics. Sputum cultures have not resulted in to positive cultures or microbial growth. The patient be kept on the nebulized treatments. The patient be kept on the steroids. She is improving however her improvement is rather slow he had she's been placed on oral Lasix. Renal function is stable for now. The patient is seen again today 11/20/2016 in follow-up. She is currently sitting up at the bedside. She is awake and alert in no acute distress. She denies any worsening shortness of breath, cough or congestion. She is breathing easier today as compared to yesterday. Sputum culture reveals no growth. Blood cultures revealed no growth. She remains on bronchodilators, antibiotics in the form of azithromycin and Zosyn. She remains on IV Solu- Medrol. She is maintaining good O2 saturations in the mid 90s on 3 L/m per nasal cannula. Afebrile. The patient is seen again today 11/21/2016 in follow-up on the regular medical floor. She is awake and alert in no acute distress. She does continue with a loose nonproductive cough. She is maintaining good O2 saturations in the 90s on 3 L/m per nasal cannula. She has been slow to progress. We'll plan for bronchoscopy with BAL in the a.m. Patient is seen again stay 11/22/2016 in follow-up on the regular medical floor. She is currently sitting up in chair at the bedside. She is awake and alert in no acute distress. She does continue with a loose nonproductive cough. She states she is doing about the same today as compared to yesterday. Blood and sputum cultures reveal no growth to date. We will see 12.5, hemoglobin 9.2, creatinine 1.03. She is maintaining O2 saturations in the mid 90s on 3 L/m per nasal cannula. Objective - Vital Signs Vital signs: Vital Signs Temp 98.8 F 11/22/16 07:00 Pulse 76 11/22/16 11:53 Resp 18 11/22/16 07:00 BP 134/61 11/22/16 07:00 Pulse Ox 94 L 11/22/16 07:45 Intake & Output 11/21/16 11/22/16 11/22/16 18:59 06:59 18:59 Other: Voiding Method Bedside Commode # Voids 3 1 # Bowel Movements 1 - Exam Head exam was generally normal. There was no scleral icterus or corneal arcus. Mucous membranes were moist. Neck is short and supple and there is significant crowding of the posterior oropharynx. There is no goiter or neck masses. Lungs sounds are diminished bilaterally along with some scattered expiratory wheezes and some prolongation of expiratory phase of breathing. Overall bronchospasm wheezing is improved compared to yesterday. Heart sounds are regular, positive S1-S2, no significant murmurs appreciated.Abdominal exam revealed normal bowel sounds. The abdomen was soft, non-tender, and without masses, organomegaly, or appreciable enlargement of the abdominal aorta.Examination of the extremities revealed easily palpable radial, femoral and pedal pulses. There was no cyanosis, clubbing or edema. - Labs CBC & Chem 7: 11/22/16 07:50 11/22/16 07:50 Labs: Abnormal Lab Results - Last 24 Hours (Table) 11/21/16 11/21/16 11/22/16 Range/Units 17:24 20:40 07:50 WBC (3.8-10.6) k/uL RBC (3.80-5.40) m/uL Hgb (11.4-16.0) gm/dL Hct (34.0-46.0) % Neutrophils # (1.3-7.7) k/uL Sodium 134 L (137-145) mmol/L Chloride 91 L (98-107) mmol/L Carbon Dioxide 41 H* (22-30) mmol/L BUN 36 H (7-17) mg/dL POC Glucose (mg/dL) 264 H 192 H (75-99) mg/dL Calcium 8.1 L (8.4-10.2) mg/dL Total Protein 5.1 L (6.3-8.2) g/dL Albumin 2.8 L (3.5-5.0) g/dL 11/22/16 Range/Units 07:50 WBC 12.5 H (3.8-10.6) k/uL RBC 3.29 L (3.80-5.40) m/uL Hgb 9.2 L (11.4-16.0) gm/dL Hct 28.6 L (34.0-46.0) % Neutrophils # 9.8 H (1.3-7.7) k/uL Sodium (137-145) mmol/L Chloride (98-107) mmol/L Carbon Dioxide (22-30) mmol/L BUN (7-17) mg/dL POC Glucose (mg/dL) (75-99) mg/dL Calcium (8.4-10.2) mg/dL Total Protein (6.3-8.2) g/dL Albumin (3.5-5.0) g/dL Microbiology - Last 24 Hours (Table) 11/15/16 08:02 Blood Culture - Final Blood No Growth after 144 hours 11/15/16 09:21 Blood Culture - Final Blood No Growth after 144 hours Assessment and Plan Plan: Assessment 1 acute left lung pneumonia involving the lingula in the left lower lobe segment. There is also some atelectatic changes in the right midlung. Rule out pneumonia with mucous plugging secondary atelectasis. Rule out infection with MRSA or pseudomonas nontender the patient has been colonized and infected by these microorganisms in the past. The repeat sputum cultures from this current hospitalization shows no microbial growth. We will plan for bronchoscopy with BAL today. 2 acute on top of chronic hypoxic respiratory failure, secondary to above, improving slowly 3 acute COPD exacerbation with BiPAP dependent respiratory failure, improving slowly 4 obesity 5 coronary artery disease 6 CHF with diastolic dysfunction secondary pulmonary hypertension with a PA pressure of around 45 7 shingles, treated with acyclovir 8 fall with back pain and compression fractures 9 osteoporosis 10 diverticular disease 11 medical debility seconds above-mentioned comorbidities 12 paroxysmal atrial fibrillation and currently rhythm is sinus 13 pre Renal azotemia Plan The patient was seen and evaluated by Dr. Dorman. We will go ahead and plan for bronchoscopy with BAL today. We'll continue with her current medications. We 'll continue to follow.
[2016-11-22] MEDS: APIXABAN 2.5 MG TABLET PO SCH ×2 (13:45→22:00)
[2016-11-22] MEDS: VERAPAMIL 40 MG TAB PO SCH ×3 (13:46→22:02)
[2016-11-22] MEDS ORDERED: MIDAZOLAM 2 MG/2 ML VIAL ONE (14:13)
[2016-11-22] MEDS ORDERED: LIDOCAINE 1% INJ 10MG/ML (20 ML MDV) ONE (14:13)
[2016-11-22] MEDS ORDERED: KETAMINE 10 MG/ML 20 ML VIAL ONE (14:13)
[2016-11-22] MEDS ORDERED: PROPOFOL 10 MG/ML 20 ML VIAL IV ONE (14:13)
[2016-11-22] MEDS ORDERED: GLYCOPYRROLATE 0.2 MG/ML 2 ML VIAL ONE (14:13)
[2016-11-22] MEDS ORDERED: LIDOCAINE 2% (PF) 20 MG/ML 10ML INHALATION ONE (14:25)
[2016-11-22] MEDS ORDERED: IV FLUID CONTINUATION 1,000 ML IV ONE (14:34)
--- NOTE | 2016-11-22 14:36 | P.PCN ---
Date of Procedure: 11/22/16 Preoperative Diagnosis: pneumonia Postoperative Diagnosis: 1 purulent foul-smelling rest or secretions within the airways, rule out pneumonia/secondary bronchitis 2 severe Tracheobronchomalacia Procedure(s) Performed: Flexible bronchoscopy, therapeutic airway suctioning, airway inspection. Implants: Anesthesia: MAC Surgeon: Elva Dorman Sign Erector #1: Katerine Adair Estimated Blood Loss (ml): 0 IV fluids (ml): 0 Urine output (ml): 0 Pathology: other Condition: stable Disposition: floor Indications for Procedure: Dyspnea Operative Findings: This procedure was done and the bronchoscopy suite. A timeout and a consent was obtained. The anesthetic agents was administered by anesthesia the bedside. The patient was given a total of 90 mg of Diprivan and 1 mg of Versed and 20 mg of ketamine. After achieving adequate sedation, a flexible bronchoscope was inserted through right nostril to the left upper airway. Examination of the posterior oropharynx shows significant crowding and there was dynamic collapse ability consistent with obstructive sleep apnea. The patient was given a chin left/jaw thrust and immediately the upper airway structures were on revealed. Epiglottis was within normal limits. The vallecula include some rest or secretions were suctioned out. Arytenoids. The upper airway structures were all inspected and all of them were within normal limits and the vocal cords and fully functional and mobile. A total of 2 mL of 1% lidocaine was applied to the vocal cords and following that the bronchoscope was advanced into the upper trachea. Examination of the tracheal bronchial tree was initiated. Immediately it was observed that the patient had severe trachebronchomalacia with dynamic airway collapse of the trachea and the various main bronchi with expiratory maneuvers and coughing. In addition, there was copious amount of purulent foul-smelling rest or secretions scattered throughout the lung tony bilaterally. Most of the secretions were occupying the main trachea and mainstem bronchi and to lesser extent the lower lobes bilaterally. At this point, therapeutic airway suctioning was done and the underlying airway was clear from any residual secretions. The bronchial mucosa was inflamed and irritated at this point. No foreign bodies. No endobronchial tumors or lesions. As mentioned there was severe tracheal bronchomalacia that was affecting the entire tracheobronchial tree. The visualized airways included the trachea, bilateral mainstem bronchi, right upper lobe bronchus, bronchus intermedius, right middle lobe bronchus, right lower lobe bronchus, left upper lobe bronchus, left lower lobe bronchussegments and subsegments. After completing the procedure, the patient's airways was free of any secretions. The bronchoscope was removed and the patient was not recovered and she will chest or back to room in a stable condition. The bronchial aspirates will be sent for microbial analysis. Description of Procedure:
[2016-11-22] MEDS: AZITHROMYCIN 500 MG TAB PO SCH (16:00)
[2016-11-22] MEDS: FUROSEMIDE 20 MG TAB PO SCH (16:01)
[2016-11-22] MEDS: POTASSIUM CHLORIDE ER 10 MEQ TAB.ER.PRT PO SCH ×2 (16:01→22:01)
[2016-11-22] MEDS: ASPIRIN 81 MG CHEW PO SCH (16:01)
[2016-11-22] MEDS: predniSONE 20 MG TAB PO SCH (16:01)
[2016-11-22 17:11] LABS: Glucose,Whole Blood 134 mg/dL (75-99)
[2016-11-22] MEDS: VANCOMYCIN 1,250 MG in SODIUM CHLORIDE 0.9% 250 ML IVPB SCH (20:13)
[2016-11-22 20:49] LABS: Glucose,Whole Blood 271 mg/dL (75-99)
[2016-11-22 21:33] LABS: RBC, Body Fluid 833 /uL
[2016-11-22 23:28] VITALS: RESP 16
[2016-11-23] MEDS: HYDROmorphone 1 MG/ML 1 ML SYRINGE IVP PRN ×2 (03:17→09:38)
[2016-11-23] MEDS: LACTATED RINGERS 1,000 ML IV SCH (06:06)
[2016-11-23 07:20] LABS: Glucose,Whole Blood 109 mg/dL (75-99)
[2016-11-23 07:21] VITALS: BP 131/56; TEMP 97.1
[2016-11-23] MEDS: INSULIN LISPRO (humaLOG) 300 UNIT/3 ML VIAL SQ SCH ×2 (07:34→12:20)
[2016-11-23] MEDS: PIPERACILLIN-TAZOBACTAM 3.375 GM in DEXTROSE/WATER 1 50ML.BAG IVPB SCH (07:34)
[2016-11-23] MEDS: FUROSEMIDE 20 MG TAB PO SCH (07:35)
[2016-11-23] MEDS: ASPIRIN 81 MG CHEW PO SCH (07:35)
[2016-11-23] MEDS: METOPROLOL TARTRATE 25 MG TAB PO SCH (07:35)
[2016-11-23] MEDS: AZITHROMYCIN 500 MG TAB PO SCH (07:35)
[2016-11-23] MEDS: APIXABAN 2.5 MG TABLET PO SCH (07:35)
[2016-11-23] MEDS: SODIUM CHLORIDE 0.9% 1,000 ML IV SCH (07:35)
[2016-11-23] MEDS: POTASSIUM CHLORIDE ER 10 MEQ TAB.ER.PRT PO SCH (07:35)
[2016-11-23] MEDS: VERAPAMIL 40 MG TAB PO SCH (07:36)
[2016-11-23] MEDS: predniSONE 20 MG TAB PO SCH (07:36)
[2016-11-23] MEDS: IPRATROPIUM-ALBUTEROL 3 ML NEB INHALATION SCH ×2 (08:42→11:48)
[2016-11-23] MEDS ORDERED: VANCOMYCIN TROUGH DUE 1 EACH MISC MISCELLANE ONE (11:00)
[2016-11-23 11:46] LABS: Calcium 8.3 mg/dL (8.4-10.2); Potassium 4.4 mmol/L (3.5-5.1)
[2016-11-23 11:58] VITALS: BMI 28.5
[2016-11-23 12:01] LABS: Glucose,Whole Blood 163 mg/dL (75-99)
[2016-11-23 12:03] VITALS: PULSE 76
[2016-11-23] MEDS: VANCOMYCIN 1,250 MG in SODIUM CHLORIDE 0.9% 250 ML IVPB SCH (12:19)
--- NOTE | 2016-11-23 13:44 | DS ---
Medications: 1. DuoNeb q.i.d. 2. Eliquis 2.5 b.i.d. 3. Aspirin 81 mg daily. 4. Zithromax 500 mg for five days. 5. Lasix 20 mg daily. 6. Accu-Chek protocol a.c. and q.h.s. 7. Metoprolol 25 mg b.i.d. 8. Nitroglycerine 0.4 mg sublingual prn. 9. Augmentin. 10. Ceftin 500 mg b.i.d. for seven days. 11. Potassium chloride 10 meq b.i.d. 12. Prednisone 40 mg daily. 13. Verapamil 40 mg t.i.d. Condition stable. Prognosis: Guarded. DISCHARGE DIAGNOSES: 1. Chronic obstructive pulmonary disease exacerbation. 2. Chronic hypoxemic respiratory failure. 3. Lumbar compression fractures. 4. Hypoxemic respiratory distress. 5. Atrial fibrillation with rapid ventricular response. 6. Congestive heart failure, diastolic. 7. Shingles. 8. Coronary artery disease. 9. Obesity. 10. Chronic obstructive pulmonary disease exacerbation. 11. Osteoporosis. 12. Diverticular disease. 13. Medical debility. HOSPITAL COURSE OF EVENTS: White female was admitted to the hospital with acute left lung pneumonia with lingula segments and acute respiratory distress, hypoxemic respiratory distress started on broad spectrum vancomycin, Zosyn and IV steroids. The patient slowly improved over the next 24 to 48 hours, over the next week and oxygen level was weaned down to 3 L. Breathing slowly improved. She ended up having bronchoscopy with Dr. Dorman with cultures pending on discharge. That may need to be followed up on. She was continued with steroids, updrafts. IV steroids, updraft treatments. Antibiotics. Continue current treatment as pulmonary stabilized. Follow-up as an outpatient. [facility] SYSTEMKrish[facility]
--- NOTE | 2016-11-23 14:48 | P.PN ---
Subjective A pleasant 85-year-old female patient, known history of COPD, known history of chronic hypoxic respiratory failure, who got transferred to our hospital because of worsening shortness of breath. The patient has been followed up by our service and she had been seen at the [place]'s office. The patient had a fall approximately 3 weeks ago and she sustained significant injury to her lower back. At that point she had been seen in [facility] and further x-rays at shown compression fractures in her lumbar spine. She was unable to ambulate and be independent and based on that she was taken to [facility] medical facility where she had been staying for the past 3 weeks. The patient during her stay developed shingles over the right posterior chest area and she was started on acyclovir around November 01. The patient subsequently started having increased shortness of breath. She started having increased cough chest congestion and chest tightness and wheezing. Has COPD exacerbated. Denies having any fever or chills. She got transferred to our hospital and the chest x-ray showing left lower lobe and lingular infiltrate in addition to an atelectatic band and the right midlung area. She is producing copious amount of purulent respiratory secretions. She was placed on BiPAP for respiratory support at a pressure of 12/5 cm of water with an FiO2 of 40%. Currently she is on oxygen by nasal cannula. No change in mental status. Family is at the bedside. No reported aspiration. 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 In fact, the previous sputum analysis at that was done in December 2015 showed multiple pseudomonas and MRSA elements. Her troponins are minimally elevated at 0.03 and her proBNP level is 3350. On 11/16/16 the patient is being seen in follow-up. The patient is less short of breath compared to yesterday. The sputum was sent for Gram stain and culture. The patient is not having any chest pain. No fever or chills. Overnight she was awaiting the BiPAP at a pressure of 12/5 cm of water. Currently is on normal BiPAP and she is on high flow oxygen 10 L/m nasal cannula. No nausea. No vomiting no change in mental status. Note that she has been covered with broad-spectrum antibiotics pH has been infected with pseudomonas and MRSA in the past and for that reason the patient was placed on a combination of Zosyn, Zithromax and vancomycin. X-ray of the lumbar spine was done and showed osteopenia. There is decompression of the superior endplate of L2 and order of 15%. She has been also noted to have paroxysmal atrial fibrillation. She had short runs of PAT. Her current rhythm is sinus with PAC. The patient is on anticoagulation per cardiology's recommendation. No Cardizem drip. On 11/17/2016, the patient is being seen in follow-up. The patient is doing well. No specific complaints. Still using the BiPAP overnight at a pressure of 12/5 cm of water. Cough and chest congestion is improved. No fever. No chills. No night sweats. The patient is in sinus rhythm. She has developed a mild component of prerenal azotemia and for that reason she was placed on oral Lasix 20 mg by mouth daily. She is also on oral anticoagulants. He remains on IV Solu-Medrol. No nausea. No vomiting. No diarrhea. No change in mental status. No other complaints On 11/18/2016 I'm seeing the patient in follow-up. She is doing well. No specific complaints otherwise for now. The chest x-ray showed a stable finding with chronic senescent changes and hyperinflation consistent with COPD. No fever. No chills. No night sweats. Sputum cultures had not yielded into anything that's positive. The patient's potassium level is at 2.9 is to be replaced. Creatinine is stable at 1.1. The patient on oral Lasix. The patient is also on bronchodilators systemic steroids and broad-spectrum antibiotics. On 11/19/2016, the patient is being seen in follow-up. No new complaints pH is sitting up on a chair. She is still using the BiPAP overnight for respiratory support. Remains on broad-spectrum antibiotics. Sputum cultures have not resulted in to positive cultures or microbial growth. The patient be kept on the nebulized treatments. The patient be kept on the steroids. She is improving however her improvement is rather slow he had she's been placed on oral Lasix. Renal function is stable for now. The patient is seen again today 11/20/2016 in follow-up. She is currently sitting up at the bedside. She is awake and alert in no acute distress. She denies any worsening shortness of breath, cough or congestion. She is breathing easier today as compared to yesterday. Sputum culture reveals no growth. Blood cultures revealed no growth. She remains on bronchodilators, antibiotics in the form of azithromycin and Zosyn. She remains on IV Solu- Medrol. She is maintaining good O2 saturations in the mid 90s on 3 L/m per nasal cannula. Afebrile. The patient is seen again today 11/21/2016 in follow-up on the regular medical floor. She is awake and alert in no acute distress. She does continue with a loose nonproductive cough. She is maintaining good O2 saturations in the 90s on 3 L/m per nasal cannula. She has been slow to progress. We'll plan for bronchoscopy with BAL in the a.m. Patient is seen again stay 11/22/2016 in follow-up on the regular medical floor. She is currently sitting up in chair at the bedside. She is awake and alert in no acute distress. She does continue with a loose nonproductive cough. She states she is doing about the same today as compared to yesterday. Blood and sputum cultures reveal no growth to date. We will see 12.5, hemoglobin 9.2, creatinine 1.03. She is maintaining O2 saturations in the mid 90s on 3 L/m per nasal cannula. The patient is seen again today 11/23/2016 in follow-up on the regular medical floor. She is awake and alert in no acute distress. She states she is breathing quite a bit better today as compared to yesterday. She did undergo bronchoscopy with BAL. There was significant amount of thick foul-smelling sputum removed. Cultures are pending. She is currently on vancomycin, Zosyn and azithromycin. She is maintaining good O2 saturations in the upper 90s on 3 L/m per nasal cannula. Afebrile. Objective - Vital Signs Vital signs: Vital Signs Temp 97.1 F L 11/23/16 07:00 Pulse 76 11/23/16 12:03 Resp 16 11/23/16 07:00 BP 131/56 11/23/16 07:00 Pulse Ox 97 11/23/16 08:44 Intake & Output 11/22/16 11/23/16 11/23/16 18:59 06:59 18:59 Intake Total 100 200 Balance 100 200 Weight 73 kg Intake: IV 100 Oral 200 Other: # Voids 3 1 # Bowel Movements 0 - Exam Head exam was generally normal. There was no scleral icterus or corneal arcus. Mucous membranes were moist. Neck is short and supple and there is significant crowding of the posterior oropharynx. There is no goiter or neck masses. Lungs sounds are diminished bilaterally. Overall bronchospasm wheezing is improved compared to yesterday. Heart sounds are regular, positive S1-S2, no significant murmurs appreciated.Abdominal exam revealed normal bowel sounds. The abdomen was soft, non-tender, and without masses, organomegaly, or appreciable enlargement of the abdominal aorta.Examination of the extremities revealed easily palpable radial, femoral and pedal pulses. There was no cyanosis , clubbing or edema. - Labs CBC & Chem 7: 11/22/16 07:50 11/23/16 10:45 Labs: Abnormal Lab Results - Last 24 Hours (Table) 11/22/16 11/22/16 11/23/16 Range/Units 16:57 20:39 07:09 Sodium (137-145) mmol/L Chloride (98-107) mmol/L Carbon Dioxide (22-30) mmol/L BUN (7-17) mg/dL Creatinine (0.52-1.04) mg/dL Glucose (74-99) mg/dL POC Glucose (mg/dL) 134 H 271 H 109 H (75-99) mg/dL Calcium (8.4-10.2) mg/dL 11/23/16 11/23/16 Range/Units 10:45 11:57 Sodium 133 L (137-145) mmol/L Chloride 90 L (98-107) mmol/L Carbon Dioxide 37 H (22-30) mmol/L BUN 31 H (7-17) mg/dL Creatinine 1.10 H (0.52-1.04) mg/dL Glucose 119 H (74-99) mg/dL POC Glucose (mg/dL) 163 H (75-99) mg/dL Calcium 8.3 L (8.4-10.2) mg/dL Microbiology - Last 24 Hours (Table) 11/22/16 14:35 Gram Stain - Preliminary Bronchial Washings - Left Bronchial Washings Culture - Preliminary 11/22/16 14:35 Acid Fast Bacilli Culture - Preliminary Bronchial Washings - Left 11/22/16 14:35 Fungal Culture - Preliminary Bronchial Washings - Left Assessment and Plan Plan: Assessment 1 acute left lung pneumonia involving the lingula in the left lower lobe segment. There is also some atelectatic changes in the right midlung. Rule out pneumonia with mucous plugging secondary atelectasis. Rule out infection with MRSA or pseudomonas nontender the patient has been colonized and infected by these microorganisms in the past. The repeat sputum cultures from this current hospitalization shows no microbial growth. Bronchoscopy with BAL was performed yesterday. There is a large amount of thick foul-smelling sputum returned. Cultures are pending. 2 acute on top of chronic hypoxic respiratory failure, secondary to above, improving slowly 3 acute COPD exacerbation with BiPAP dependent respiratory failure, improving slowly 4 obesity 5 coronary artery disease 6 CHF with diastolic dysfunction secondary pulmonary hypertension with a PA pressure of around 45 7 shingles, treated with acyclovir 8 fall with back pain and compression fractures 9 osteoporosis 10 diverticular disease 11 medical debility seconds above-mentioned comorbidities 12 paroxysmal atrial fibrillation and currently rhythm is sinus, anticoagulated with apixaban 13 pre Renal azotemia Plan The patient was seen and evaluated by Dr. Dorman. She'll be seen in our office in 1-2 weeks' time. We will await final culture results and make further adjustments in her antibiotics if needed. She is encouraged to call sooner with any recurrence of symptoms or other questions or concerns.
[2016-11-24] MEDS ORDERED: VANCOMYCIN 1,000 MG in SODIUM CHLORIDE 0.9% 250 ML IVPB SCH (06:00)
== END 2016-11-23 14:30 | DRG 190 ==
LOC: EC 06:34 → 6SEL 08:16 → 4MS4W 11-19 14:13
PROVIDERS: ADMIT Family Medicine; ATTEND Family Medicine
PROC: 2W35X3Z Immobilization of Back using Brace (ICD-10-PCS; 2016-11-15)
PROC: 0BJ08ZZ Inspection of Tracheobronchial Tree, Via Natural or Artificial Opening Endoscopic (ICD-10-PCS; 2016-11-22)
PROC: 0B978ZX Drainage of Left Main Bronchus, Via Natural or Artificial Opening Endoscopic, Diagnostic (ICD-10-PCS; principal; 2016-11-22 13:00)
DX: J44.0 Chronic obstructive pulmonary disease with (acute) lower respiratory infection (principal); J96.21 Acute and chronic respiratory failure with hypoxia; I50.33 Acute on chronic diastolic (congestive) heart failure; J18.9 Pneumonia, unspecified organism; I27.2 Other secondary pulmonary hypertension; I11.0 Hypertensive heart disease with heart failure; B02.9 Zoster without complications; Z99.81 Dependence on supplemental oxygen; I48.0 Paroxysmal atrial fibrillation; I47.1 Supraventricular tachycardia; J45.901 Unspecified asthma with (acute) exacerbation; M80.88XG Other osteoporosis with current pathological fracture, vertebra(e), subsequent encounter for fracture with delayed healing; J44.1 Chronic obstructive pulmonary disease with (acute) exacerbation; J39.8 Other specified diseases of upper respiratory tract; J98.09 Other diseases of bronchus, not elsewhere classified; E55.9 Vitamin D deficiency, unspecified; G47.33 Obstructive sleep apnea (adult) (pediatric); I25.10 Atherosclerotic heart disease of native coronary artery without angina pectoris; M19.90 Unspecified osteoarthritis, unspecified site; M54.6 Pain in thoracic spine; K57.90 Diverticulosis of intestine, part unspecified, without perforation or abscess without bleeding; E78.5 Hyperlipidemia, unspecified; I49.1 Atrial premature depolarization; I25.2 Old myocardial infarction; M85.88 Other specified disorders of bone density and structure, other site; H91.90 Unspecified hearing loss, unspecified ear; R53.1 Weakness; R26.9 Unspecified abnormalities of gait and mobility; G89.29 Other chronic pain; R79.89 Other specified abnormal findings of blood chemistry; E66.9 Obesity, unspecified; Z86.14 Personal history of Methicillin resistant Staphylococcus aureus infection; Z87.01 Personal history of pneumonia (recurrent); Z16.24 Resistance to multiple antibiotics; Z87.891 Personal history of nicotine dependence; Z80.0 Family history of malignant neoplasm of digestive organs; Z90.49 Acquired absence of other specified parts of digestive tract; Z79.899 Other long term (current) drug therapy; Z71.3 Dietary counseling and surveillance; Z79.82 Long term (current) use of aspirin; Z79.1 Long term (current) use of non-steroidal anti-inflammatories (NSAID); Z79.51 Long term (current) use of inhaled steroids; Z88.1 Allergy status to other antibiotic agents; Z86.19 Personal history of other infectious and parasitic diseases; Z91.81 History of falling; Z87.828 Personal history of other (healed) physical injury and trauma; Z87.19 Personal history of other diseases of the digestive system; Z87.09 Personal history of other diseases of the respiratory system; Z98.49 Cataract extraction status, unspecified eye; Z90.710 Acquired absence of both cervix and uterus; W19.XXXA Unspecified fall, initial encounter; Y95 Nosocomial condition
CPT/HCPCS: 31624; 36415; 71010; 71020; 72100; 80048; 80053; 80061; 80202; 82550; 82553; 83036; 83605; 83735; 83880; 84132; 84484; 85025; 85027; 85049; 85610; 85730; 87040; 87070; 87102; 87116; 87205; 87206; 87252; 87496; 87498; 87502; 87529; 87798; 88108; 88305; 89050; 93005; 93306; 94640; 94660; 94760